=== PATIENT | male | born 1985 | race Caucasian/White ===

== ENCOUNTER 2016-08-16 01:30 | Inpatient (IN) | payer OTHER ==
[~2016-08-16] VITALS: Ht 172.7 cm; Wt 98.5 kg
[~2016-08-16 01:30] MED LIST: INSLAN SQ; INSU100V SQ; LISI-661 PO; PANT40TA25 PO
[2016-08-16 01:52] LABS: GLUCOSE,POINT OF CARE 206 MG/DL (70-110)
[2016-08-16 03:18] LABS: BASOPHILS % (AUTO) 0.5 % (0.0-2.0); EOSINOPHILS % (AUTO) 2.9 % (1.0-6.0); HEMATOCRIT 31.7 % (41-53); HEMOGLOBIN 9.6 g/dL (13.5-17.5); LYMPHOCYTES # (AUTO) 1.7 K/uL (1.0-4.8); LYMPHOCYTES % (AUTO) 16.8 % (22.0-44.0); MEAN CORPUSCULAR HGB CONC 30.4 G/dL (31.0-37.0); MEAN CORPUSCULAR VOLUME 82 fL (80-100); MONOCYTES # (AUTO) 0.9 K/uL (0.1-1.0); NEUTROPHILS # (AUTO) 7.1 K/uL (1.8-7.7); NEUTROPHILS % (AUTO) 70.8 % (40.0-70.0); PLATELET COUNT (AUTO) 429 K/uL (150-450); RED BLOOD CELL COUNT(AUTO) 3.85 MIL/uL (4.50-5.90); RED CELL DISTRIBUTION WIDTH 17.3 % (11.5-14.5)
[2016-08-16 03:27] LABS: CALCIUM, TOTAL 7.7 mg/dL (8.8-10.5); CREATININE 3.66 mg/dL (0.60-1.30); POTASSIUM 4.6 mmol/L (3.5-5.1)
[2016-08-16 03:33] LABS: ALBUMIN 1.6 g/dL (3.4-5.0); BILIRUBIN,TOTAL 0.1 mg/dL (0.1-1.0); TOTAL PROTEIN, SERUM 6.1 g/dL (6.4-8.2)
[2016-08-16 03:38] LABS: RBC MORPHOLOGY COMMENT ABNORMAL RBC MORPH
[2016-08-16] MEDS ORDERED: HYDROmorphone 2 MG/ML SYRINGE IVP ONE ×4 (04:30→13:45)
[2016-08-16] MEDS ORDERED: ONDANSETRON HCL 4 MG/2 ML VIAL IVP ONE (04:30)
[2016-08-16] MEDS ORDERED: BARIUM SULFATE 0.1% SUSPENSION 450 ML BOTTLE PO ONE (05:45)
[2016-08-16] MEDS ORDERED: FUROSEMIDE 40 MG/4 ML VIAL IVP ONE (06:00)
[2016-08-16 10:07] LABS: GLUCOSE,POINT OF CARE 178 MG/DL (70-110)
[2016-08-16 16:41] VITALS: BP 188/104
[2016-08-16] MEDS: HYDROmorphone 2 MG/ML SYRINGE IVP PRN ×2 (17:29→20:07)
[2016-08-16 17:34] VITALS: BP 150/90
[2016-08-16 19:17] VITALS: BP 155/95
[2016-08-16 23:40] VITALS: BP 160/102
[2016-08-17] MEDS: HYDROmorphone 2 MG/ML SYRINGE IVP PRN ×6 (00:06→20:02)
[2016-08-17 04:35] VITALS: BP 128/80
[2016-08-17] MEDS ORDERED: DEXTROSE 50%-WATER 25 GM/50 ML SYRINGE IVP PRN (05:30)
[2016-08-17] MEDS ORDERED: ONDANSETRON HCL 4 MG/2 ML VIAL IVP PRN (05:45)
[2016-08-17] MEDS ORDERED: 0.9% SODIUM CHLORIDE 10 ML SYRINGE IVP PRN (05:45)
[2016-08-17 06:52] LABS: GLUCOSE COMMENT 1 Received Meds; GLUCOSE,POINT OF CARE 171 MG/DL (70-110)
[2016-08-17 07:18] VITALS: BP 155/97
[2016-08-17] MEDS: PANTOPRAZOLE SODIUM 40 MG DR TABLET PO SCH (08:11)
[2016-08-17] MEDS: DOCUSATE SODIUM 100 MG CAPSULE PO SCH ×2 (08:11→20:03)
[2016-08-17] MEDS ORDERED: PANTOPRAZOLE SODIUM 40 MG/VIAL IVP SCH (09:00)
[2016-08-17] MEDS ORDERED: LISINOPRIL 10 MG TABLET PO SCH (09:00)
[2016-08-17 09:17] LABS: CALCIUM, TOTAL 7.8 mg/dL (8.8-10.5); CREATININE 3.81 mg/dL (0.60-1.30); POTASSIUM 4.6 mmol/L (3.5-5.1)
[2016-08-17 09:21] LABS: MAGNESIUM 1.5 mg/dL (1.80-2.40); PHOSPHORUS 5.1 mg/dL (2.5-4.9)
[2016-08-17] MEDS: FUROSEMIDE 20 MG/2 ML VIAL IVP SCH ×2 (10:05→20:02)
[2016-08-17 10:59] LABS: GLUCOSE,POINT OF CARE 173 MG/DL (70-110)
[2016-08-17 10:59] LABS: GLUCOSE,POINT OF CARE 155 MG/DL (70-110)
[2016-08-17] MEDS: INSULIN ASPART 100 UNITS/ML SQ PRN ×3 (12:12→20:04)
[2016-08-17 13:17] LABS: GLUCOSE COMMENT 1 Received Meds; GLUCOSE,POINT OF CARE 207 MG/DL (70-110)
[2016-08-17] MEDS ORDERED: MAGNESIUM SULFATE 1 GM in DEXTROSE 5%-WATER 50 ML IV ONE (15:15)
[2016-08-17 15:37] VITALS: BP 161/101
[2016-08-17 18:03] LABS: GLUCOSE COMMENT 1 Received Meds; GLUCOSE,POINT OF CARE 264 MG/DL (70-110)
[2016-08-17] MEDS: INSULIN DETEMIR 100 UNITS/ML SQ SCH (20:03)
[2016-08-17 20:17] VITALS: BP 181/101
[2016-08-17] MEDS: HydrALAZINE HCL 10 MG TABLET PO PRN (21:13)
[2016-08-17 23:10] VITALS: BP 137/94
[2016-08-18] VITALS (7 sets, daily range): BP systolic 133–181; BP diastolic 85–102
[2016-08-18] MEDS: HYDROmorphone 2 MG/ML SYRINGE IVP PRN ×6 (00:03→20:40)
[2016-08-18] MEDS: HydrALAZINE HCL 10 MG TABLET PO PRN ×2 (04:09→23:40)
[2016-08-18 04:17] LABS: GLUCOSE COMMENT 1 Received Meds; GLUCOSE,POINT OF CARE 296 MG/DL (70-110)
[2016-08-18 06:44] LABS: BASOPHILS % (AUTO) 0.5 % (0.0-2.0); LYMPHOCYTES # (AUTO) 1.7 K/uL (1.0-4.8); LYMPHOCYTES % (AUTO) 25.3 % (22.0-44.0); MEAN CORPUSCULAR HGB CONC 30.2 G/dL (31.0-37.0); MEAN CORPUSCULAR VOLUME 83 fL (80-100); MONOCYTES % (AUTO) 14.8 % (2.0-9.0); NEUTROPHILS # (AUTO) 3.5 K/uL (1.8-7.7); NEUTROPHILS % (AUTO) 51.4 % (40.0-70.0); PLATELET COUNT (AUTO) 452 K/uL (150-450); RED BLOOD CELL COUNT(AUTO) 3.99 MIL/uL (4.50-5.90); RED CELL DISTRIBUTION WIDTH 16.7 % (11.5-14.5); WHITE BLOOD COUNT (AUTO) 6.7 K/uL (4.5-11.0)
[2016-08-18 07:10] LABS: CALCIUM, TOTAL 7.7 mg/dL (8.8-10.5); CREATININE 3.82 mg/dL (0.60-1.30); MAGNESIUM 1.6 mg/dL (1.80-2.40); POTASSIUM 4.4 mmol/L (3.5-5.1)
[2016-08-18] MEDS: DOCUSATE SODIUM 100 MG CAPSULE PO SCH ×2 (08:18→20:40)
[2016-08-18] MEDS: FUROSEMIDE 20 MG/2 ML VIAL IVP SCH ×2 (08:19→20:40)
[2016-08-18] MEDS: PANTOPRAZOLE SODIUM 40 MG DR TABLET PO SCH (08:21)
[2016-08-18 11:23] LABS: GLUCOSE,POINT OF CARE 118 MG/DL (70-110)
[2016-08-18 11:23] LABS: GLUCOSE,POINT OF CARE 103 MG/DL (70-110)
[2016-08-18] MEDS: INSULIN ASPART 100 UNITS/ML SQ PRN (18:02)
[2016-08-18] MEDS: MAGNESIUM OXIDE 400 MG TABLET PO SCH (18:07)
[2016-08-18 18:12] LABS: GLUCOSE COMMENT 1 Received Meds; GLUCOSE,POINT OF CARE 177 MG/DL (70-110)
[2016-08-18] MEDS: INSULIN DETEMIR 100 UNITS/ML SQ SCH (21:00)
[2016-08-19] MEDS: HYDROmorphone 2 MG/ML SYRINGE IVP PRN ×4 (00:46→12:25)
[2016-08-19 01:24] VITALS: BP 147/83
[2016-08-19 04:21] VITALS: BP 184/112
[2016-08-19] MEDS: HydrALAZINE HCL 10 MG TABLET PO PRN ×2 (04:40→12:35)
[2016-08-19 05:02] LABS: GLUCOSE COMMENT 1 Received Meds; GLUCOSE,POINT OF CARE 137 MG/DL (70-110)
[2016-08-19] MEDS: INSULIN ASPART 100 UNITS/ML SQ PRN ×2 (05:19→12:05)
[2016-08-19 06:17] VITALS: BP 159/99
[2016-08-19 06:56] LABS: CALCIUM, TOTAL 7.7 mg/dL (8.8-10.5); CREATININE 3.81 mg/dL (0.60-1.30); MAGNESIUM 1.6 mg/dL (1.80-2.40); POTASSIUM 4.8 mmol/L (3.5-5.1)
[2016-08-19 07:21] VITALS: BP 146/94
[2016-08-19 07:42] LABS: GLUCOSE COMMENT 1 Received Meds; GLUCOSE,POINT OF CARE 229 MG/DL (70-110)
[2016-08-19] MEDS: DOCUSATE SODIUM 100 MG CAPSULE PO SCH (08:13)
[2016-08-19] MEDS: FUROSEMIDE 20 MG/2 ML VIAL IVP SCH (08:13)
[2016-08-19] MEDS: MAGNESIUM OXIDE 400 MG TABLET PO SCH (08:13)
[2016-08-19] MEDS: PANTOPRAZOLE SODIUM 40 MG DR TABLET PO SCH (08:13)
[2016-08-19 13:32] LABS: GLUCOSE,POINT OF CARE 236 MG/DL (70-110)
[2016-08-20 16:03] LABS: ALBUMIN URINE (ELP24) 31.9 %; ALPHA-1 URINE (ELP24) 9.9 %; ALPHA-2 URINE(ELP24) 11.9 %; BETA URINE(ELP24) 20.7 %; GAMMA URINE(ELP24) 25.6 %; TOTAL PROTEIN URINE 602.1 mg/dL (Not Estab.)
[2016-08-20] MEDS ORDERED: HYDR-309 PO (20:58)
[2016-08-20] MEDS ORDERED: FURO20 PO (20:58)
[2016-08-20] MEDS ORDERED: MAGOX PO (20:58)
== END 2016-08-19 13:07 | DRG 48 ==
LOC: EMS 01:31 → 6N 15:13
PROVIDERS: ADMIT Internal Medicine; ATTEND Internal Medicine
DX: E11.43 Type 2 diabetes mellitus with diabetic autonomic (poly)neuropathy (principal); E43 Unspecified severe protein-calorie malnutrition; J90 Pleural effusion, not elsewhere classified; N17.9 Acute kidney failure, unspecified; K56.7 Ileus, unspecified; E11.21 Type 2 diabetes mellitus with diabetic nephropathy; E83.51 Hypocalcemia; E11.51 Type 2 diabetes mellitus with diabetic peripheral angiopathy without gangrene; N18.4 Chronic kidney disease, stage 4 (severe); I16.0 Hypertensive urgency; K31.84 Gastroparesis; D63.8 Anemia in other chronic diseases classified elsewhere; E11.22 Type 2 diabetes mellitus with diabetic chronic kidney disease; E11.319 Type 2 diabetes mellitus with unspecified diabetic retinopathy without macular edema; E11.65 Type 2 diabetes mellitus with hyperglycemia; F12.90 Cannabis use, unspecified, uncomplicated; F17.210 Nicotine dependence, cigarettes, uncomplicated; F32.9 Major depressive disorder, single episode, unspecified; F43.10 Post-traumatic stress disorder, unspecified; H54.8 Legal blindness, as defined in USA; I12.9 Hypertensive chronic kidney disease with stage 1 through stage 4 chronic kidney disease, or unspecified chronic kidney disease; Z79.4 Long term (current) use of insulin; Z89.512 Acquired absence of left leg below knee; Z79.899 Other long term (current) drug therapy; Z99.2 Dependence on renal dialysis; Z88.8 Allergy status to other drugs, medicaments and biological substances; Z88.0 Allergy status to penicillin; Z88.5 Allergy status to narcotic agent; Z68.33 Body mass index [BMI] 33.0-33.9, adult; Z83.3 Family history of diabetes mellitus
CPT/HCPCS: 74176; 76700; 81050; 82306; 82570; 82575; 82962; 83735; 83970; 84100; 84156; 84166; 84300; 84540; 87081; 93005; 96374; 96375; 96376; 99285; J1170; J1940; J2405; J3475; J7060

== ENCOUNTER 2016-08-20 20:44 | Emergency (ER) | payer OTHER ==
[~2016-08-20] VITALS: Ht 172.7 cm; Wt 91.7 kg
[2016-08-20 20:54] VITALS: BP 187/109
[2016-08-20 20:57] LABS: GLUCOSE,POINT OF CARE 350 MG/DL (70-110)
[2016-08-20] MEDS ORDERED: MAGOX PO (20:58)
[2016-08-20] MEDS ORDERED: HYDR-309 PO (20:58)
[2016-08-20] MEDS ORDERED: FURO20 PO (20:58)
[2016-08-20] MEDS ORDERED: METOCLOPRAMIDE HCL 5 MG/ML 2 ML VIAL IM ONE (21:15)
== END 2016-08-20 22:02 | disposition left against medical advice (07) ==
LOC: EMS 20:47
DX: E11.43 Type 2 diabetes mellitus with diabetic autonomic (poly)neuropathy (principal); K31.84 Gastroparesis; Z79.4 Long term (current) use of insulin; Z88.0 Allergy status to penicillin; Z88.5 Allergy status to narcotic agent
CPT/HCPCS: 82962; 99283

== ENCOUNTER 2017-02-23 15:00 | Inpatient (IN) | payer OTHER ==
[~2017-02-23] VITALS: Ht 172.7 cm; Wt 112.7 kg
[~2017-02-23 15:00] MED LIST changes: +FURO20 PO; +HYDR-309 PO; +MAGOX PO
[2017-02-23] MEDS ORDERED: FUROSEMIDE 40 MG/4 ML VIAL IVP ONE (16:00)
[2017-02-23] MEDS ORDERED: ONDANSETRON HCL 4 MG/2 ML VIAL IVP ONE (16:00)
[2017-02-23] MEDS ORDERED: HYDROmorphone 2 MG/ML SYRINGE IVP ONE ×3 (16:00→18:45)
[2017-02-23 16:17] LABS: BASOPHILS % (AUTO) 0.2 % (0.0-2.0); EOSINOPHILS % (AUTO) 2.8 % (1.0-6.0); HEMATOCRIT 30.9 % (41-53); HEMOGLOBIN 10.3 g/dL (13.5-17.5); LYMPHOCYTES # (AUTO) 1.3 K/uL (1.0-4.8); LYMPHOCYTES % (AUTO) 15.4 % (22.0-44.0); MEAN CORPUSCULAR HEMOGLOBIN 27.5 pg (26.0-34.0); MEAN CORPUSCULAR HGB CONC 33.2 G/dL (31.0-37.0); MEAN CORPUSCULAR VOLUME 83 fL (80-100); MONOCYTES # (AUTO) 0.8 K/uL (0.1-1.0); MONOCYTES % (AUTO) 9.7 % (2.0-9.0); NEUTROPHILS % (AUTO) 71.9 % (40.0-70.0); PLATELET COUNT (AUTO) 390 K/uL (150-450); RED BLOOD CELL COUNT(AUTO) 3.73 MIL/uL (4.50-5.90); RED CELL DISTRIBUTION WIDTH 16.8 % (11.5-14.5); WHITE BLOOD COUNT (AUTO) 8.4 K/uL (4.5-11.0)
[2017-02-23 16:31] LABS: PROTHROMBIN TIME 10.7 SEC (9.4-11.6)
[2017-02-23 16:57] LABS: ALBUMIN 1.7 g/dL (3.4-5.0); BILIRUBIN,TOTAL 0.2 mg/dL (0.1-1.0); CALCIUM, TOTAL 7.3 mg/dL (8.8-10.5); CREATINE KINASE MB 9.7 ng/mL (0-5); CREATININE 10.73 mg/dL (0.60-1.30); TOTAL PROTEIN, SERUM 6.5 g/dL (6.4-8.2)
[2017-02-23 17:04] LABS: POTASSIUM 6.9 mmol/L (3.5-5.1)
[2017-02-23] MEDS ORDERED: ALBUTEROL SULFATE 2.5 MG/0.5 ML NEB SOLUTION NEB ONE (17:20)
[2017-02-23] MEDS ORDERED: CALCIUM GLUCONATE 100 MG/ML 10 ML IVP ONE (17:30)
[2017-02-23] MEDS ORDERED: DEXTROSE 50%-WATER 25 GM/50 ML SYRINGE IVP ONE (17:30)
[2017-02-23] MEDS ORDERED: INSULIN REGULAR, HUMAN 100 UNITS/ML SQ ONE (17:30)
[2017-02-23 18:22] LABS: GLUCOSE COMMENT 1 Doctor Notified; GLUCOSE,POINT OF CARE 181 MG/DL (70-110)
[2017-02-23] MEDS: VITAMIN B COMP/VIT C/FOLIC ACID CAPSULE PO SCH (18:37)
[2017-02-23] MEDS ORDERED: ONDANSETRON HCL 4 MG/2 ML VIAL IVP PRN ×2 (18:45→19:30)
[2017-02-23] MEDS ORDERED: ACETAMINOPHEN 325 MG TABLET PO PRN (18:45)
[2017-02-23] MEDS ORDERED: 0.9% SODIUM CHLORIDE 10 ML SYRINGE IVP PRN (18:45)
[2017-02-23] MEDS ORDERED: 0.9% SODIUM CHLORIDE 15 ML NEB SOLUTION NEB ONE (19:08)
[2017-02-23] MEDS ORDERED: ZOLPIDEM TARTRATE 5 MG TABLET PO PRN (19:30)
[2017-02-23] MEDS ORDERED: BISACODYL 10 MG RECTAL RECTAL SUPPOSITORY PR PRN (19:30)
[2017-02-23] MEDS ORDERED: ALBUTEROL SULFATE 2.5 MG/0.5 ML NEB SOLUTION NEB PRN (19:30)
[2017-02-23] MEDS ORDERED: IPRATROPIUM BROMIDE 0.5 MG/2.5 ML NEB SOLUTION NEB PRN (19:30)
[2017-02-23] MEDS ORDERED: MAGNESIUM HYDROXIDE SUSPENSION 30 ML UDCUP PO PRN (19:30)
[2017-02-23] MEDS ORDERED: DEXTROSE 50%-WATER 25 GM/50 ML SYRINGE IVP PRN (19:30)
[2017-02-23 21:00] VITALS: BP 175/96
[2017-02-23] MEDS: HEPARIN SODIUM,PORCINE 5,000 UNITS/ML VIAL SQ SCH (21:00)
[2017-02-23] MEDS: INSULIN DETEMIR 100 UNITS/ML SQ SCH (21:00)
[2017-02-23] MEDS ORDERED: SODIUM CHLORIDE 0.9% 2,000 ML IV ONE (21:02)
[2017-02-23] MEDS: HYDROmorphone 2 MG/ML SYRINGE IVP PRN (21:26)
[2017-02-23 22:27] LABS: GLUCOSE,POINT OF CARE 117 MG/DL (70-110)
[2017-02-23] MEDS ORDERED: ALBUMIN HUMAN 25%-12.5GM/50ML IV BOTTLE IV PRN (22:30)
[2017-02-23] MEDS ORDERED: LIDOCAINE HCL/PF 1% 2 ML VIAL ID PRN (22:30)
[2017-02-23] MEDS ORDERED: MANNITOL 25%-12.5 GM/50 ML VIAL IVP PRN (22:30)
[2017-02-24 00:30] VITALS: BP 153/86
[2017-02-24] MEDS: HYDROmorphone 2 MG/ML SYRINGE IVP PRN ×6 (01:28→23:33)
[2017-02-24 03:52] VITALS: BP 152/85
[2017-02-24 06:05] LABS: BASOPHILS % (AUTO) 0.2 % (0.0-2.0); EOSINOPHILS % (AUTO) 4.8 % (1.0-6.0); HEMATOCRIT 29.2 % (41-53); HEMOGLOBIN 9.6 g/dL (13.5-17.5); LYMPHOCYTES # (AUTO) 1.7 K/uL (1.0-4.8); MEAN CORPUSCULAR HEMOGLOBIN 27.8 pg (26.0-34.0); MEAN CORPUSCULAR HGB CONC 32.9 G/dL (31.0-37.0); MEAN CORPUSCULAR VOLUME 84 fL (80-100); MONOCYTES # (AUTO) 1.1 K/uL (0.1-1.0); MONOCYTES % (AUTO) 19.8 % (2.0-9.0); NEUTROPHILS # (AUTO) 2.6 K/uL (1.8-7.7); NEUTROPHILS % (AUTO) 46.2 % (40.0-70.0); PLATELET COUNT (AUTO) 376 K/uL (150-450); RED BLOOD CELL COUNT(AUTO) 3.46 MIL/uL (4.50-5.90); RED CELL DISTRIBUTION WIDTH 17.1 % (11.5-14.5); WHITE BLOOD COUNT (AUTO) 5.7 K/uL (4.5-11.0)
[2017-02-24 06:44] LABS: ALBUMIN 1.5 g/dL (3.4-5.0); BILIRUBIN,TOTAL 0.2 mg/dL (0.1-1.0); CALCIUM, TOTAL 6.9 mg/dL (8.8-10.5); CREATININE 8.08 mg/dL (0.60-1.30); MAGNESIUM 2.5 mg/dL (1.80-2.40); PHOSPHORUS 7.6 mg/dL (2.5-4.9); POTASSIUM 5.5 mmol/L (3.5-5.1); TOTAL PROTEIN, SERUM 5.9 g/dL (6.4-8.2)
[2017-02-24] MEDS: HEPARIN SODIUM,PORCINE 5,000 UNITS/ML VIAL SQ SCH ×2 (09:00→21:00)
[2017-02-24] MEDS ORDERED: SODIUM CHLORIDE 0.9% 1,000 ML IV ONE (10:50)
[2017-02-24 11:37] VITALS: BP 175/99
[2017-02-24 12:53] LABS: GLUCOSE,POINT OF CARE 119 MG/DL (70-110)
[2017-02-24] MEDS: VITAMIN B COMP/VIT C/FOLIC ACID CAPSULE PO SCH (14:48)
[2017-02-24] MEDS: ASPIRIN 81 MG CHEWABLE TABLET PO SCH (14:49)
[2017-02-24] MEDS: PANTOPRAZOLE SODIUM 40 MG DR TABLET PO SCH (14:49)
[2017-02-24] MEDS: CHOLECALCIFEROL (VIT D3) 1,000 UNITS TABLET PO SCH (14:49)
[2017-02-24 15:32] VITALS: BP 169/92
[2017-02-24 19:29] VITALS: BP 188/100
[2017-02-24] MEDS: INSULIN DETEMIR 100 UNITS/ML SQ SCH (21:00)
[2017-02-24 21:52] LABS: GLUCOSE,POINT OF CARE 120 MG/DL (70-110)
[2017-02-24 23:30] VITALS: BP_SYST 15; BP_SYST 155; BP_DIAS 95
[2017-02-25] MEDS: HYDROmorphone 2 MG/ML SYRINGE IVP PRN ×2 (03:58→08:32)
[2017-02-25 03:59] VITALS: BP 175/93
[2017-02-25 07:37] LABS: GLUCOSE,POINT OF CARE 136 MG/DL (70-110)
[2017-02-25 07:38] LABS: GLUCOSE,POINT OF CARE 280 MG/DL (70-110)
[2017-02-25 08:28] VITALS: BP 157/93
[2017-02-25] MEDS: PANTOPRAZOLE SODIUM 40 MG DR TABLET PO SCH (08:28)
[2017-02-25] MEDS: ASPIRIN 81 MG CHEWABLE TABLET PO SCH (08:28)
[2017-02-25] MEDS: VITAMIN B COMP/VIT C/FOLIC ACID CAPSULE PO SCH (08:28)
[2017-02-25] MEDS: CHOLECALCIFEROL (VIT D3) 1,000 UNITS TABLET PO SCH (08:28)
[2017-02-25] MEDS: HEPARIN SODIUM,PORCINE 5,000 UNITS/ML VIAL SQ SCH ×2 (08:32→21:00)
[2017-02-25] MEDS ORDERED: ASPI81TA39 PO (10:25)
[2017-02-25] MEDS ORDERED: VITAD1000 PO (10:25)
[2017-02-25] MEDS ORDERED: EPOE10003 SQ (10:26)
[2017-02-25] MEDS ORDERED: HEPA500018 SQ (10:27)
[2017-02-25] MEDS ORDERED: FOLI1CAP2 PO (10:27)
[2017-02-25] MEDS ORDERED: AUD NEB (10:28)
[2017-02-25] MEDS ORDERED: BISA10S PR (10:28)
[2017-02-25] MEDS ORDERED: IPRNEB IH (10:29)
[2017-02-25] MEDS ORDERED: INSNOV SQ (10:32)
[2017-02-25 11:00] VITALS: BP 176/62
[2017-02-25 11:43] LABS: GLUCOSE,POINT OF CARE 173 MG/DL (70-110)
[2017-02-25 11:43] LABS: GLUCOSE,POINT OF CARE 237 MG/DL (70-110)
[2017-02-25] MEDS: INSULIN ASPART 100 UNITS/ML SQ PRN (11:54)
[2017-02-25] MEDS ORDERED: AmLODIPine BESYLATE 5 MG TABLET PO SCH (14:45)
[2017-02-25] MEDS ORDERED: AMLO-511 PO (14:49)
[2017-02-25] MEDS ORDERED: CloNIDine HCL 0.1 MG TABLET PO ONE (17:15)
[2017-02-25] MEDS ORDERED: TraMADol HCL 50 MG TABLET PO ONE (17:15)
[2017-02-25] MEDS ORDERED: AmLODIPine BESYLATE 10 MG TABLET PO ONE (18:45)
[2017-02-25] MEDS ORDERED: CloNIDine HCL 0.1 MG TABLET PO PRN (18:45)
[2017-02-25 19:23] VITALS: BP 165/98
[2017-02-25] MEDS: INSULIN DETEMIR 100 UNITS/ML SQ SCH (21:00)
[2017-02-25] MEDS ORDERED: LIDOCAINE HCL/PF 1% 2 ML VIAL INJ ONE (22:10)
[2017-02-25 23:58] VITALS: BP 167/73
[2017-02-26] MEDS: INSULIN ASPART 100 UNITS/ML SQ PRN (05:56)
[2017-02-26 06:05] VITALS: BP 133/70
[2017-02-26 07:26] LABS: GLUCOSE,POINT OF CARE 234 MG/DL (70-110)
[2017-02-26 08:04] VITALS: BP 113/65
[2017-02-26] MEDS: CHOLECALCIFEROL (VIT D3) 1,000 UNITS TABLET PO SCH (09:00)
[2017-02-26] MEDS: PANTOPRAZOLE SODIUM 40 MG DR TABLET PO SCH (09:00)
[2017-02-26] MEDS: HEPARIN SODIUM,PORCINE 5,000 UNITS/ML VIAL SQ SCH (09:00)
[2017-02-26] MEDS ORDERED: EPOETIN ALFA 10,000 UNITS/ML VIAL SQ SCH (09:00)
[2017-02-26] MEDS: VITAMIN B COMP/VIT C/FOLIC ACID CAPSULE PO SCH (09:00)
[2017-02-26] MEDS ORDERED: AmLODIPine BESYLATE 10 MG TABLET PO SCH (09:00)
[2017-02-26] MEDS: ASPIRIN 81 MG CHEWABLE TABLET PO SCH (09:00)
[2017-02-26] MEDS ORDERED: AMLO-512 PO (10:06)
[2017-02-26 11:21] VITALS: BP 138/87
[2017-02-26 15:29] VITALS: BP 156/91
[2017-02-26 19:47] LABS: GLUCOSE,POINT OF CARE 139 MG/DL (70-110)
== END 2017-02-26 19:58 | DRG 425 ==
LOC: EMS 15:02 → 5N 18:55
PROVIDERS: ADMIT Internal Medicine; ATTEND Internal Medicine
PROC: 5A1D70Z Performance of Urinary Filtration, Intermittent, Less than 6 Hours Per Day (ICD-10-PCS; principal; 2017-02-23)
PROC: 5A1D70Z Performance of Urinary Filtration, Intermittent, Less than 6 Hours Per Day (ICD-10-PCS; 2017-02-24)
PROC: 5A1D70Z Performance of Urinary Filtration, Intermittent, Less than 6 Hours Per Day (ICD-10-PCS; 2017-02-26)
DX: E87.5 Hyperkalemia (principal); I13.2 Hypertensive heart and chronic kidney disease with heart failure and with stage 5 chronic kidney disease, or end stage renal disease; E43 Unspecified severe protein-calorie malnutrition; N18.6 End stage renal disease; E11.21 Type 2 diabetes mellitus with diabetic nephropathy; E11.22 Type 2 diabetes mellitus with diabetic chronic kidney disease; F11.20 Opioid dependence, uncomplicated; E11.65 Type 2 diabetes mellitus with hyperglycemia; E87.1 Hypo-osmolality and hyponatremia; E55.9 Vitamin D deficiency, unspecified; K21.9 Gastro-esophageal reflux disease without esophagitis; B18.2 Chronic viral hepatitis C; D63.1 Anemia in chronic kidney disease; E11.319 Type 2 diabetes mellitus with unspecified diabetic retinopathy without macular edema; E11.43 Type 2 diabetes mellitus with diabetic autonomic (poly)neuropathy; E11.51 Type 2 diabetes mellitus with diabetic peripheral angiopathy without gangrene; E66.9 Obesity, unspecified; F12.10 Cannabis abuse, uncomplicated; F17.210 Nicotine dependence, cigarettes, uncomplicated; F32.9 Major depressive disorder, single episode, unspecified; F43.10 Post-traumatic stress disorder, unspecified; H54.8 Legal blindness, as defined in USA; I50.9 Heart failure, unspecified; K31.84 Gastroparesis; Z76.5 Malingerer [conscious simulation]; Z91.19 Patient's noncompliance with other medical treatment and regimen; Z79.4 Long term (current) use of insulin; Z79.899 Other long term (current) drug therapy; Z89.512 Acquired absence of left leg below knee; Z99.2 Dependence on renal dialysis; Z88.0 Allergy status to penicillin; Z88.5 Allergy status to narcotic agent; Z88.8 Allergy status to other drugs, medicaments and biological substances; Z71.51 Drug abuse counseling and surveillance of drug abuser
CPT/HCPCS: 82962; 83036; 83735; 84100; 84132; 87081; 87340; 90935; 93005; 96372; 96374; 96375; 96376; 99291; J0610; J0885; J1170; J1644; J1815; J1940; J2405; J3490; J7030

== ENCOUNTER 2017-03-13 10:46 | Emergency (ER) | payer OTHER ==
[~2017-03-13] VITALS: Ht 172.7 cm; Wt 102.3 kg
[~2017-03-13 10:46] MED LIST changes: +AMLO-512 PO; +ASPI81TA39 PO; +AUD NEB; +BISA10S PR; +EPOE10003 SQ; +FOLI1CAP2 PO; -FURO20 PO; +HEPA500018 SQ; -HYDR-309 PO; +INSNOV SQ; -INSU100V SQ; +IPRNEB IH; -LISI-661 PO; -MAGOX PO; +VITAD1000 PO
[2017-03-13] MEDS ORDERED: ONDANSETRON HCL 4 MG/2 ML VIAL IVP ONE (11:45)
[2017-03-13 12:57] LABS: BASOPHILS # (AUTO) 0.09 K/uL (0.00-0.20); BASOPHILS % (AUTO) 0.9 % (0.0-2.0); EOSINOPHILS # (AUTO) 0.29 K/uL (0.00-0.70); EOSINOPHILS % (AUTO) 2.77 % (1.0-6.0); HEMATOCRIT 28.7 % (41-53); HEMOGLOBIN 9.1 g/dL (13.5-17.5); LYMPHOCYTES # (AUTO) 1.4 K/uL (1.0-4.8); LYMPHOCYTES % (AUTO) 12.8 % (22.0-44.0); MEAN CORPUSCULAR HEMOGLOBIN 27.2 pg (26.0-34.0); MEAN CORPUSCULAR HGB CONC 31.8 G/dL (31.0-37.0); MEAN CORPUSCULAR VOLUME 86 fL (80-100); MONOCYTES # (AUTO) 1.4 K/uL (0.1-1.0); MONOCYTES % (AUTO) 12.7 % (2.0-9.0); NEUTROPHILS # (AUTO) 7.6 K/uL (1.8-7.7); PLATELET COUNT (AUTO) 386 K/uL (150-450); RED BLOOD CELL COUNT(AUTO) 3.36 MIL/uL (4.50-5.90); RED CELL DISTRIBUTION WIDTH 17.9 % (11.5-14.5); WHITE BLOOD COUNT (AUTO) 10.6 K/uL (4.5-11.0)
[2017-03-13 13:15] LABS: CALCIUM, TOTAL 7.5 mg/dL (8.8-10.5); CREATININE 4.58 mg/dL (0.60-1.30); POTASSIUM 5.2 mmol/L (3.5-5.1)
[2017-03-13 13:18] LABS: ALBUMIN 1.7 g/dL (3.4-5.0); BILIRUBIN,TOTAL 0.2 mg/dL (0.1-1.0)
[2017-03-13] MEDS ORDERED: BARIUM SULFATE 0.1% SUSPENSION 450 ML BOTTLE PO ONE (13:30)
[2017-03-13] MEDS ORDERED: MORPHINE SULFATE 2 MG/ML SYRINGE IVP ONE (13:30)
[2017-03-13] MEDS ORDERED: IOVERSOL 350 MG/ML 150 ML VIAL ONE (14:09)
[2017-03-13] MEDS ORDERED: SODIUM CHLORIDE 0.9% 100 ML ONE (14:10)
[2017-03-13 17:41] VITALS: BP 145/73
== END 2017-03-13 18:11 | disposition home or self-care (01) ==
LOC: EMS 10:48
DX: E11.43 Type 2 diabetes mellitus with diabetic autonomic (poly)neuropathy (principal); K31.84 Gastroparesis; G89.29 Other chronic pain; I10 Essential (primary) hypertension; F12.10 Cannabis abuse, uncomplicated; F17.210 Nicotine dependence, cigarettes, uncomplicated; Z79.4 Long term (current) use of insulin; Z88.0 Allergy status to penicillin; Z88.5 Allergy status to narcotic agent; Z88.8 Allergy status to other drugs, medicaments and biological substances
CPT/HCPCS: 74176; 80053; 83690; 85025; 93005; 96374; 96375; 99285; 99406; J2270; J2405; J7050; Q9967; Z7610

== ENCOUNTER 2018-07-31 10:46 | Emergency (ER) | payer OTHER ==
[~2018-07-31] VITALS: Ht 167.6 cm; Wt 72.7 kg
[~2018-07-31 10:46] MED LIST changes: -ASPI81TA39 PO; -AUD NEB; -BISA10S PR; -FOLI1CAP2 PO; -HEPA500018 SQ; -INSLAN SQ; -IPRNEB IH; -PANT40TA25 PO
[2018-07-31] MEDS ORDERED: ATOR10TA69 PO (11:09)
[2018-07-31] MEDS ORDERED: SEVEC800 PO (11:09)
[2018-07-31] MEDS ORDERED: ACET-2247 PO (11:09)
[2018-07-31] MEDS ORDERED: CALC25 PO (11:09)
[2018-07-31] MEDS ORDERED: PERCT PO (11:09)
[2018-07-31] MEDS ORDERED: CARV25 PO (11:09)
[2018-07-31] MEDS ORDERED: SERT50TA12 PO (11:09)
[2018-07-31] MEDS ORDERED: LORazepam 2 MG/ML VIAL IVP ONE ×2 (11:15→13:30)
[2018-07-31] MEDS ORDERED: HALOPERIDOL LACTATE 5 MG/ML VIAL IVP ONE ×2 (11:15→13:30)
[2018-07-31 11:36] LABS: BASOPHILS % (AUTO) 1.2 % (0.0-2.0); EOSINOPHILS % (AUTO) 2.8 % (1.0-6.0); HEMATOCRIT 27.5 % (41-53); HEMOGLOBIN 8.9 g/dL (13.5-17.5); LYMPHOCYTES # (AUTO) 0.9 K/uL (1.0-4.8); LYMPHOCYTES % (AUTO) 12.2 % (22.0-44.0); MEAN CORPUSCULAR HEMOGLOBIN 28.7 pg (26.0-34.0); MEAN CORPUSCULAR HGB CONC 32.3 G/dL (31.0-37.0); MEAN CORPUSCULAR VOLUME 89 fL (80-100); MONOCYTES # (AUTO) 0.8 K/uL (0.1-1.0); MONOCYTES % (AUTO) 11.2 % (2.0-9.0); NEUTROPHILS # (AUTO) 5.4 K/uL (1.8-7.7); NEUTROPHILS % (AUTO) 72.6 % (40.0-70.0); PLATELET COUNT (AUTO) 359 K/uL (150-450); RED BLOOD CELL COUNT(AUTO) 3.09 MIL/uL (4.50-5.90); RED CELL DISTRIBUTION WIDTH 15.7 % (11.5-14.5)
[2018-07-31 11:52] LABS: CALCIUM, TOTAL 7.9 mg/dL (8.8-10.5); CREATININE 15.2 mg/dL (0.60-1.30); POTASSIUM 5.7 mmol/L (3.5-5.1)
[2018-07-31 11:57] LABS: ALBUMIN 3.3 g/dL (3.4-5.0); BILIRUBIN,TOTAL 0.5 mg/dL (0.1-1.0); TOTAL PROTEIN, SERUM 8.7 g/dL (6.4-8.2)
[2018-07-31 12:00] VITALS: BP 170/107
[2018-07-31] MEDS ORDERED: LORazepam 2 MG/ML VIAL IM ONE (13:30)
[2018-07-31] MEDS ORDERED: HALOPERIDOL LACTATE 5 MG/ML VIAL IM ONE (13:30)
== END 2018-07-31 13:58 | disposition home or self-care (01) ==
LOC: EMS 10:48
DX: F12.988 Cannabis use, unspecified with other cannabis-induced disorder (principal); R11.10 Vomiting, unspecified; I12.0 Hypertensive chronic kidney disease with stage 5 chronic kidney disease or end stage renal disease; E11.22 Type 2 diabetes mellitus with diabetic chronic kidney disease; N18.6 End stage renal disease; D63.1 Anemia in chronic kidney disease; F32.9 Major depressive disorder, single episode, unspecified; F12.90 Cannabis use, unspecified, uncomplicated; F17.210 Nicotine dependence, cigarettes, uncomplicated; Z99.2 Dependence on renal dialysis; Z88.0 Allergy status to penicillin; Z88.8 Allergy status to other drugs, medicaments and biological substances; Z79.4 Long term (current) use of insulin; Z79.899 Other long term (current) drug therapy
CPT/HCPCS: 36415; 71045; 80053; 82962; 83690; 85025; 93005; 96372; 96374; 96375; 99285; J1630; J2060

== ENCOUNTER 2018-07-31 14:33 | Emergency (ER) | payer OTHER ==
[~2018-07-31] VITALS: Ht 167.6 cm; Wt 72.7 kg
[~2018-07-31 14:33] MED LIST changes: +ACET-2247 PO; +ATOR10TA69 PO; +CALC25 PO; +CARV25 PO; +PERCT PO; +SERT50TA12 PO; +SEVEC800 PO
[2018-07-31 14:47] VITALS: BP 161/95
== END 2018-07-31 18:26 | disposition home or self-care (01) ==
LOC: EMS 14:34
DX: R11.10 Vomiting, unspecified (principal); R10.9 Unspecified abdominal pain; I10 Essential (primary) hypertension; E11.9 Type 2 diabetes mellitus without complications; F32.9 Major depressive disorder, single episode, unspecified; F12.90 Cannabis use, unspecified, uncomplicated; F17.210 Nicotine dependence, cigarettes, uncomplicated; Z88.0 Allergy status to penicillin; Z88.8 Allergy status to other drugs, medicaments and biological substances; Z79.4 Long term (current) use of insulin; Z79.899 Other long term (current) drug therapy

== ENCOUNTER 2018-09-08 03:08 | Inpatient (IN) | payer OTHER ==
[~2018-09-08] VITALS: Ht 172.7 cm; Wt 79.3 kg
[~2018-09-08 03:08] MED LIST changes: -VITAD1000 PO
[2018-09-08] MEDS ORDERED: SODIUM CHLORIDE 0.9% 1,000 ML IV ONE (03:15)
[2018-09-08] MEDS ORDERED: ONDANSETRON HCL 4 MG/2 ML VIAL IVP ONE (03:15)
[2018-09-08] MEDS ORDERED: MORPHINE SULFATE 4 MG/ML SYRINGE IVP ONE (03:15)
[2018-09-08] MEDS ORDERED: METOCLOPRAMIDE HCL 5 MG/ML 2 ML VIAL IVP ONE (03:30)
[2018-09-08] MEDS ORDERED: HYDROmorphone 2 MG/ML SYRINGE IVP ONE ×3 (03:45→09:30)
[2018-09-08 03:50] LABS: BASOPHILS % (AUTO) 1.2 % (0.0-2.0); EOSINOPHILS % (AUTO) 3.8 % (1.0-6.0); HEMATOCRIT 24.3 % (41-53); HEMOGLOBIN 7.9 g/dL (13.5-17.5); LYMPHOCYTES # (AUTO) 1.2 K/uL (1.0-4.8); LYMPHOCYTES % (AUTO) 16.1 % (22.0-44.0); MEAN CORPUSCULAR HEMOGLOBIN 29.2 pg (26.0-34.0); MEAN CORPUSCULAR HGB CONC 32.7 G/dL (31.0-37.0); MEAN CORPUSCULAR VOLUME 89 fL (80-100); MONOCYTES # (AUTO) 0.8 K/uL (0.1-1.0); MONOCYTES % (AUTO) 11.3 % (2.0-9.0); NEUTROPHILS # (AUTO) 5.1 K/uL (1.8-7.7); NEUTROPHILS % (AUTO) 67.6 % (40.0-70.0); PLATELET COUNT (AUTO) 256 K/uL (150-450); RED BLOOD CELL COUNT(AUTO) 2.72 MIL/uL (4.50-5.90); RED CELL DISTRIBUTION WIDTH 16.2 % (11.5-14.5)
[2018-09-08 04:03] LABS: ALBUMIN 2.9 g/dL (3.4-5.0); BILIRUBIN,TOTAL 0.5 mg/dL (0.1-1.0); CALCIUM, TOTAL 8.4 mg/dL (8.8-10.5); CREATININE 8.81 mg/dL (0.60-1.30); TOTAL PROTEIN, SERUM 7.3 g/dL (6.4-8.2)
[2018-09-08 04:10] LABS: POTASSIUM 6.6 mmol/L (3.5-5.1)
[2018-09-08] MEDS ORDERED: ALBUTEROL SULFATE 5 MG/ML 20 ML NEB SOLN [BULK] NEB ONE ×2 (04:15→04:30)
[2018-09-08] MEDS ORDERED: 0.9% SODIUM CHLORIDE 5 ML NEB SOLUTION NEB ONE (04:25)
[2018-09-08] MEDS ORDERED: INSULIN REGULAR, HUMAN 100 UNITS/ML IVP ONE (04:30)
[2018-09-08] MEDS ORDERED: CALCIUM GLUCONATE 100 MG/ML 10 ML IVP ONE (04:30)
[2018-09-08] MEDS ORDERED: DEXTROSE 50%-WATER 25 GM/50 ML SYRINGE IVP ONE ×2 (04:30)
[2018-09-08] MEDS ORDERED: NITROGLYCERIN 2% (1 GM=INCH) PACKET TP ONE (04:30)
[2018-09-08 04:35] LABS: MAGNESIUM 2.5 mg/dL (1.80-2.40)
[2018-09-08 04:37] LABS: POTASSIUM 6.6 mmol/L (3.5-5.1)
[2018-09-08] MEDS ORDERED: CloNIDine HCL 0.2 MG TABLET PO ONE (05:30)
[2018-09-08 07:05] VITALS: BP 164/87
[2018-09-08] MEDS ORDERED: SODIUM CHLORIDE 0.9% 2,000 ML IV ONE (07:37)
[2018-09-08 07:52] VITALS: BP 157/89
[2018-09-08] MEDS ORDERED: ONDANSETRON HCL 4 MG/2 ML VIAL IVP PRN (08:45)
[2018-09-08] MEDS ORDERED: PANTOPRAZOLE SODIUM 40 MG/VIAL IVP SCH (09:00)
[2018-09-08] MEDS: EPOETIN ALFA 10,000 UNITS/ML VIAL SQ SCH (09:00)
[2018-09-08 11:49] VITALS: BP 186/95
[2018-09-08] MEDS: METOCLOPRAMIDE HCL 5 MG TABLET PO SCH ×3 (12:30→20:36)
[2018-09-08] MEDS: HYDROmorphone HCL 2 MG TABLET PO PRN (14:37)
[2018-09-08] MEDS: CloNIDine HCL 0.1 MG TABLET PO PRN ×2 (14:37→20:37)
[2018-09-08 16:55] VITALS: BP 188/112
[2018-09-08] MEDS: HYDROmorphone 2 MG/ML SYRINGE IVP PRN ×2 (18:37→22:40)
[2018-09-08 19:31] VITALS: BP 181/90
[2018-09-08 22:45] VITALS: BP 157/100
[2018-09-09] VITALS (7 sets, daily range): BP systolic 152–205; BP diastolic 76–119
[2018-09-09] MEDS: HYDROmorphone 2 MG/ML SYRINGE IVP PRN ×5 (03:22→20:07)
[2018-09-09] MEDS: METOCLOPRAMIDE HCL 5 MG TABLET PO SCH ×4 (05:44→20:07)
[2018-09-09] MEDS: CloNIDine HCL 0.1 MG TABLET PO PRN ×2 (05:50→15:52)
[2018-09-09] MEDS: FAMOTIDINE 10 MG/ML 2 ML VIAL IVP SCH (08:06)
[2018-09-09 11:13] LABS: BASOPHILS % (AUTO) 1.3 % (0.0-2.0); EOSINOPHILS % (AUTO) 3.5 % (1.0-6.0); HEMATOCRIT 22.1 % (41-53); HEMOGLOBIN 7.2 g/dL (13.5-17.5); LYMPHOCYTES # (AUTO) 1.2 K/uL (1.0-4.8); LYMPHOCYTES % (AUTO) 20.5 % (22.0-44.0); MEAN CORPUSCULAR HEMOGLOBIN 28.9 pg (26.0-34.0); MEAN CORPUSCULAR HGB CONC 32.5 G/dL (31.0-37.0); MEAN CORPUSCULAR VOLUME 89 fL (80-100); MONOCYTES # (AUTO) 0.9 K/uL (0.1-1.0); MONOCYTES % (AUTO) 14.6 % (2.0-9.0); NEUTROPHILS # (AUTO) 3.6 K/uL (1.8-7.7); NEUTROPHILS % (AUTO) 60.1 % (40.0-70.0); PLATELET COUNT (AUTO) 216 K/uL (150-450); RED BLOOD CELL COUNT(AUTO) 2.48 MIL/uL (4.50-5.90); RED CELL DISTRIBUTION WIDTH 16.3 % (11.5-14.5)
[2018-09-09 11:30] LABS: CALCIUM, TOTAL 7.9 mg/dL (8.8-10.5); CREATININE 7.8 mg/dL (0.60-1.30); MAGNESIUM 2.2 mg/dL (1.80-2.40); PHOSPHORUS 4.2 mg/dL (2.5-4.9); POTASSIUM 5.9 mmol/L (3.5-5.1)
[2018-09-09 13:14] LABS: % IRON SATURATION 33.3 % (30-44)
[2018-09-09] MEDS ORDERED: AmLODIPine BESYLATE 10 MG TABLET PO ONE (18:45)
[2018-09-09] MEDS ORDERED: CARVEDILOL 25 MG TABLET PO ONE (18:45)
[2018-09-09] MEDS: HYDROmorphone HCL 2 MG TABLET PO PRN (23:27)
[2018-09-10] MEDS: HYDROmorphone 2 MG/ML SYRINGE IVP PRN ×7 (01:04→20:58)
[2018-09-10] MEDS: METOCLOPRAMIDE HCL 5 MG TABLET PO SCH ×4 (05:52→20:58)
[2018-09-10 07:17] LABS: CALCIUM, TOTAL 8.1 mg/dL (8.8-10.5); PHOSPHORUS 3.8 mg/dL (2.5-4.9); POTASSIUM 5.3 mmol/L (3.5-5.1)
[2018-09-10 08:30] VITALS: BP 188/110
[2018-09-10] MEDS: CARVEDILOL 25 MG TABLET PO SCH ×2 (08:31→20:58)
[2018-09-10] MEDS: EPOETIN ALFA 10,000 UNITS/ML VIAL SQ SCH (08:32)
[2018-09-10] MEDS: FAMOTIDINE 10 MG/ML 2 ML VIAL IVP SCH (08:32)
[2018-09-10] MEDS: AmLODIPine BESYLATE 10 MG TABLET PO SCH ×2 (08:32→20:58)
[2018-09-10 08:46] LABS: BASOPHILS % (AUTO) 1.4 % (0.0-2.0); EOSINOPHILS % (AUTO) 4.7 % (1.0-6.0); HEMOGLOBIN 7.2 g/dL (13.5-17.5); LYMPHOCYTES % (AUTO) 18.5 % (22.0-44.0); MEAN CORPUSCULAR HGB CONC 32.8 G/dL (31.0-37.0); MEAN CORPUSCULAR VOLUME 89 fL (80-100); MONOCYTES # (AUTO) 0.8 K/uL (0.1-1.0); MONOCYTES % (AUTO) 15.3 % (2.0-9.0); NEUTROPHILS # (AUTO) 3.2 K/uL (1.8-7.7); NEUTROPHILS % (AUTO) 60.1 % (40.0-70.0); PLATELET COUNT (AUTO) 228 K/uL (150-450); RED BLOOD CELL COUNT(AUTO) 2.49 MIL/uL (4.50-5.90); RED CELL DISTRIBUTION WIDTH 16.6 % (11.5-14.5)
[2018-09-10 12:30] VITALS: BP 146/78
[2018-09-10] MEDS ORDERED: DEXTROSE 50%-WATER 25 GM/50 ML SYRINGE IVP PRN (12:30)
[2018-09-10] MEDS: INSULIN LISPRO 100 UNITS/ML SQ PRN ×2 (12:34→17:55)
[2018-09-10 15:00] VITALS: BP 158/84
[2018-09-10] MEDS: HYDROmorphone HCL 2 MG TABLET PO PRN ×2 (15:10→21:05)
[2018-09-10 17:49] LABS: GLUCOMETER DEV NAME(LOC) 5N.1; GLUCOSE,POINT OF CARE 145 MG/DL (70-110)
[2018-09-10] MEDS: CloNIDine HCL 0.1 MG TABLET PO PRN (21:04)
[2018-09-10 21:07] VITALS: BP 188/79
[2018-09-10 23:44] LABS: GLUCOMETER DEV NAME(LOC) 5N.1; GLUCOSE,POINT OF CARE 158 MG/DL (70-110)
[2018-09-10 23:44] LABS: GLUCOMETER DEV NAME(LOC) 5N.1; GLUCOSE,POINT OF CARE 164 MG/DL (70-110)
[2018-09-11] VITALS (7 sets, daily range): BP systolic 117–155; BP diastolic 57–96
[2018-09-11] MEDS: HYDROmorphone 2 MG/ML SYRINGE IVP PRN ×6 (01:05→20:59)
[2018-09-11] MEDS: FAMOTIDINE 10 MG/ML 2 ML VIAL IVP SCH (08:40)
[2018-09-11] MEDS: AmLODIPine BESYLATE 10 MG TABLET PO SCH ×2 (08:40→21:05)
[2018-09-11] MEDS: CARVEDILOL 25 MG TABLET PO SCH ×2 (08:41→21:05)
[2018-09-11] MEDS: METOCLOPRAMIDE HCL 5 MG TABLET PO SCH ×4 (08:41→21:05)
[2018-09-11] MEDS: INSULIN LISPRO 100 UNITS/ML SQ PRN (12:26)
[2018-09-12] MEDS ORDERED: HYDROmorphone 2 MG/ML SYRINGE IVP ONE (00:15)
[2018-09-12] MEDS: HYDROmorphone 2 MG/ML SYRINGE IVP PRN ×5 (04:03→20:02)
[2018-09-12] MEDS: METOCLOPRAMIDE HCL 5 MG TABLET PO SCH ×4 (04:03→19:47)
[2018-09-12 07:32] VITALS: BP 135/84
[2018-09-12] MEDS: FAMOTIDINE 10 MG/ML 2 ML VIAL IVP SCH (08:03)
[2018-09-12] MEDS: AmLODIPine BESYLATE 10 MG TABLET PO SCH ×2 (09:00→19:49)
[2018-09-12] MEDS: CARVEDILOL 25 MG TABLET PO SCH ×2 (09:00→19:49)
[2018-09-12 11:06] VITALS: BP 124/57
[2018-09-12 11:20] LABS: GLUCOMETER DEV NAME(LOC) 5N.1; GLUCOSE,POINT OF CARE 192 MG/DL (70-110)
[2018-09-12 11:20] LABS: GLUCOMETER DEV NAME(LOC) 5N.1; GLUCOSE,POINT OF CARE 157 MG/DL (70-110)
[2018-09-12 11:21] LABS: GLUCOMETER DEV NAME(LOC) 5N.1; GLUCOSE,POINT OF CARE 222 MG/DL (70-110)
[2018-09-12 11:21] LABS: GLUCOMETER DEV NAME(LOC) 5N.1; GLUCOSE,POINT OF CARE 106 MG/DL (70-110)
[2018-09-12] MEDS: HYDROmorphone HCL 2 MG TABLET PO PRN (19:48)
[2018-09-12 19:50] VITALS: BP 148/85
[2018-09-12] MEDS: INSULIN LISPRO 100 UNITS/ML SQ PRN (20:56)
[2018-09-13] MEDS: HYDROmorphone 2 MG/ML SYRINGE IVP PRN ×4 (04:04→11:53)
[2018-09-13 04:57] VITALS: BP 139/74
[2018-09-13 05:00] LABS: GLUCOMETER DEV NAME(LOC) 5N.1; GLUCOSE,POINT OF CARE 192 MG/DL (70-110)
[2018-09-13] MEDS: METOCLOPRAMIDE HCL 5 MG TABLET PO SCH ×2 (06:30→11:43)
[2018-09-13] MEDS: INSULIN LISPRO 100 UNITS/ML SQ PRN (06:38)
[2018-09-13 07:39] VITALS: BP 133/73
[2018-09-13] MEDS: EPOETIN ALFA 10,000 UNITS/ML VIAL SQ SCH (09:00)
[2018-09-13] MEDS: FAMOTIDINE 10 MG/ML 2 ML VIAL IVP SCH (09:00)
[2018-09-13] MEDS: CARVEDILOL 25 MG TABLET PO SCH (09:22)
[2018-09-13] MEDS: AmLODIPine BESYLATE 10 MG TABLET PO SCH (09:22)
[2018-09-13 12:00] VITALS: BP 141/85
[2018-09-13 13:35] LABS: GLUCOMETER DEV NAME(LOC) 5S.1; GLUCOSE,POINT OF CARE 169 MG/DL (70-110)
[2018-09-13] MEDS ORDERED: ATOR20TA86 PO (13:48)
[2018-09-15 12:05] LABS: GLUCOMETER DEV NAME(LOC) 5S.3; GLUCOSE,POINT OF CARE 138 MG/DL (70-110)
[2018-09-15 12:05] LABS: GLUCOMETER DEV NAME(LOC) 5S.3; GLUCOSE,POINT OF CARE 155 MG/DL (70-110)
== END 2018-09-13 15:35 | disposition home or self-care (01) | DRG 48 ==
LOC: EMS 03:12 → 5S 04:36
PROVIDERS: ADMIT Hospitalist; ATTEND Hospitalist
PROC: 5A1D70Z Performance of Urinary Filtration, Intermittent, Less than 6 Hours Per Day (ICD-10-PCS; principal; 2018-09-08)
PROC: 5A1D70Z Performance of Urinary Filtration, Intermittent, Less than 6 Hours Per Day (ICD-10-PCS; 2018-09-09)
PROC: 5A1D70Z Performance of Urinary Filtration, Intermittent, Less than 6 Hours Per Day (ICD-10-PCS; 2018-09-12)
DX: E11.43 Type 2 diabetes mellitus with diabetic autonomic (poly)neuropathy (principal); J90 Pleural effusion, not elsewhere classified; E11.22 Type 2 diabetes mellitus with diabetic chronic kidney disease; R18.8 Other ascites; E44.0 Moderate protein-calorie malnutrition; E87.5 Hyperkalemia; I12.0 Hypertensive chronic kidney disease with stage 5 chronic kidney disease or end stage renal disease; E11.51 Type 2 diabetes mellitus with diabetic peripheral angiopathy without gangrene; I31.3 Pericardial effusion (noninflammatory); K31.84 Gastroparesis; N18.6 End stage renal disease; F32.9 Major depressive disorder, single episode, unspecified; F17.210 Nicotine dependence, cigarettes, uncomplicated; B19.20 Unspecified viral hepatitis C without hepatic coma; F12.90 Cannabis use, unspecified, uncomplicated; F43.10 Post-traumatic stress disorder, unspecified; D63.1 Anemia in chronic kidney disease; E78.5 Hyperlipidemia, unspecified; Z89.512 Acquired absence of left leg below knee; Z99.2 Dependence on renal dialysis; Z91.19 Patient's noncompliance with other medical treatment and regimen; Z76.5 Malingerer [conscious simulation]; Z79.4 Long term (current) use of insulin; Z79.899 Other long term (current) drug therapy; Z68.26 Body mass index [BMI] 26.0-26.9, adult; Z88.0 Allergy status to penicillin; Z88.8 Allergy status to other drugs, medicaments and biological substances; Z88.5 Allergy status to narcotic agent
CPT/HCPCS: 74176; 83036; 83540; 83550; 83605; 83735; 84100; 84132; 87081; 87340; 93005; 94644; 96374; 96375; G0378; J0610; J0885; J1170; J1815; J2405; J2765; J3490; J7030

== ENCOUNTER 2018-09-22 23:30 | Inpatient (IN) | payer OTHER ==
[~2018-09-22] VITALS: Ht 170.2 cm; Wt 77.6 kg
[~2018-09-22 23:30] MED LIST changes: -ATOR10TA69 PO; +ATOR20TA86 PO; -PERCT PO
[2018-09-22 23:59] LABS: GLUCOSE,POINT OF CARE 141 MG/DL (70-110)
[2018-09-23] MEDS ORDERED: SODIUM CHLORIDE 0.9% 1,000 ML IV ONE (00:06)
[2018-09-23] MEDS ORDERED: MORPHINE SULFATE 4 MG/ML SYRINGE IVP ONE (00:15)
[2018-09-23] MEDS ORDERED: HYDROmorphone 2 MG/ML SYRINGE IVP ONE ×2 (00:15→02:15)
[2018-09-23] MEDS ORDERED: ONDANSETRON HCL 4 MG/2 ML VIAL IVP ONE (00:15)
[2018-09-23 00:17] LABS: BASOPHILS % (AUTO) 1.2 % (0.0-2.0); EOSINOPHILS % (AUTO) 4.9 % (1.0-6.0); HEMATOCRIT 25.4 % (41-53); HEMOGLOBIN 8.2 g/dL (13.5-17.5); LYMPHOCYTES # (AUTO) 1.1 K/uL (1.0-4.8); LYMPHOCYTES % (AUTO) 16.7 % (22.0-44.0); MEAN CORPUSCULAR HEMOGLOBIN 29.7 pg (26.0-34.0); MEAN CORPUSCULAR HGB CONC 32.2 G/dL (31.0-37.0); MEAN CORPUSCULAR VOLUME 92 fL (80-100); MONOCYTES # (AUTO) 0.9 K/uL (0.1-1.0); MONOCYTES % (AUTO) 14.2 % (2.0-9.0); NEUTROPHILS # (AUTO) 4.2 K/uL (1.8-7.7); PLATELET COUNT (AUTO) 306 K/uL (150-450); RED BLOOD CELL COUNT(AUTO) 2.75 MIL/uL (4.50-5.90); RED CELL DISTRIBUTION WIDTH 16.6 % (11.5-14.5)
[2018-09-23 00:31] LABS: ALBUMIN 3.2 g/dL (3.4-5.0); BILIRUBIN,TOTAL 0.4 mg/dL (0.1-1.0); CALCIUM, TOTAL 8.3 mg/dL (8.8-10.5); CREATININE 9.23 mg/dL (0.60-1.30); TOTAL PROTEIN, SERUM 7.8 g/dL (6.4-8.2)
[2018-09-23 00:33] LABS: POTASSIUM 6.2 mmol/L (3.5-5.1)
[2018-09-23] MEDS ORDERED: SODIUM POLYSTYRENE SULFONATE 15 GM/60 ML SUSPENSION BOTTLE PO ONE (01:45)
[2018-09-23 05:09] VITALS: BP 218/120
[2018-09-23] MEDS ORDERED: BISACODYL 10 MG RECTAL RECTAL SUPPOSITORY PR PRN (05:45)
[2018-09-23] MEDS ORDERED: ACETAMINOPHEN 325 MG TABLET PO PRN (05:45)
[2018-09-23] MEDS ORDERED: ONDANSETRON HCL 4 MG/2 ML VIAL IVP PRN (05:45)
[2018-09-23] MEDS ORDERED: DEXTROSE 50%-WATER 25 GM/50 ML SYRINGE IVP PRN (06:00)
[2018-09-23] MEDS: HYDROmorphone 2 MG/ML SYRINGE IVP PRN ×5 (06:03→22:20)
[2018-09-23] MEDS: CloNIDine HCL 0.1 MG TABLET PO PRN (06:03)
[2018-09-23 07:24] LABS: GLUCOMETER DEV NAME(LOC) 5N.2; GLUCOSE,POINT OF CARE 128 MG/DL (70-110)
[2018-09-23 07:33] VITALS: BP 164/86
[2018-09-23] MEDS: DOCUSATE SODIUM 100 MG CAPSULE PO SCH ×2 (08:53→21:00)
[2018-09-23] MEDS: AmLODIPine BESYLATE 10 MG TABLET PO SCH (08:54)
[2018-09-23] MEDS: FAMOTIDINE 20 MG TABLET PO SCH (08:54)
[2018-09-23] MEDS ORDERED: DiphenhydrAMINE HCL 50 MG/ML VIAL IVP ONE (09:15)
[2018-09-23] MEDS ORDERED: EPOETIN ALFA 10,000 UNITS/ML 2 ML VIAL SQ SCH (11:26)
[2018-09-23] MEDS ORDERED: DOXERCALCIFEROL 4 MCG/2 ML VIAL IVP PRN (11:30)
[2018-09-23 11:55] VITALS: BP 167/97
[2018-09-23 12:24] LABS: GLUCOMETER DEV NAME(LOC) 5S.1; GLUCOSE,POINT OF CARE 103 MG/DL (70-110)
[2018-09-23] MEDS: VITAMIN B COMP/VIT C/FOLIC ACID CAPSULE PO SCH (14:17)
[2018-09-23 15:08] VITALS: BP 163/93
[2018-09-23 18:14] LABS: GLUCOMETER DEV NAME(LOC) 5S.1; GLUCOSE,POINT OF CARE 109 MG/DL (70-110)
[2018-09-23] MEDS: SEVELAMER CARBONATE 800 MG TABLET PO SCH (18:24)
[2018-09-23 22:00] VITALS: BP 157/77
[2018-09-24 00:06] VITALS: BP 157/77
[2018-09-24 00:49] LABS: GLUCOMETER DEV NAME(LOC) 5N.2; GLUCOSE,POINT OF CARE 175 MG/DL (70-110)
[2018-09-24] MEDS: HYDROmorphone 2 MG/ML SYRINGE IVP PRN ×6 (02:21→22:22)
[2018-09-24 03:53] VITALS: BP 190/91
[2018-09-24] MEDS: CloNIDine HCL 0.1 MG TABLET PO PRN ×2 (04:05→20:28)
[2018-09-24 06:26] LABS: BASOPHILS % (AUTO) 1.3 % (0.0-2.0); EOSINOPHILS % (AUTO) 4.8 % (1.0-6.0); HEMATOCRIT 22.6 % (41-53); HEMOGLOBIN 7.5 g/dL (13.5-17.5); LYMPHOCYTES # (AUTO) 0.8 K/uL (1.0-4.8); LYMPHOCYTES % (AUTO) 18.1 % (22.0-44.0); MEAN CORPUSCULAR HEMOGLOBIN 30.4 pg (26.0-34.0); MEAN CORPUSCULAR HGB CONC 33.3 G/dL (31.0-37.0); MEAN CORPUSCULAR VOLUME 91 fL (80-100); MONOCYTES # (AUTO) 0.8 K/uL (0.1-1.0); MONOCYTES % (AUTO) 17.7 % (2.0-9.0); NEUTROPHILS # (AUTO) 2.6 K/uL (1.8-7.7); NEUTROPHILS % (AUTO) 58.1 % (40.0-70.0); PLATELET COUNT (AUTO) 268 K/uL (150-450); RED BLOOD CELL COUNT(AUTO) 2.48 MIL/uL (4.50-5.90); RED CELL DISTRIBUTION WIDTH 16.4 % (11.5-14.5)
[2018-09-24 06:46] LABS: ALBUMIN 2.7 g/dL (3.4-5.0); BILIRUBIN,TOTAL 0.4 mg/dL (0.1-1.0); CALCIUM, TOTAL 8.1 mg/dL (8.8-10.5); CREATININE 6.17 mg/dL (0.60-1.30); POTASSIUM 4.2 mmol/L (3.5-5.1); TOTAL PROTEIN, SERUM 6.8 g/dL (6.4-8.2)
[2018-09-24 07:37] VITALS: BP 166/88
[2018-09-24 07:44] LABS: GLUCOMETER DEV NAME(LOC) 5S.1; GLUCOSE,POINT OF CARE 143 MG/DL (70-110)
[2018-09-24 07:44] LABS: GLUCOMETER DEV NAME(LOC) 5S.1; GLUCOSE,POINT OF CARE 180 MG/DL (70-110)
[2018-09-24] MEDS: SEVELAMER CARBONATE 800 MG TABLET PO SCH ×2 (08:35→20:00)
[2018-09-24] MEDS: FAMOTIDINE 20 MG TABLET PO SCH (08:35)
[2018-09-24] MEDS: VITAMIN B COMP/VIT C/FOLIC ACID CAPSULE PO SCH (08:40)
[2018-09-24] MEDS: [UNRECOGNIZED DRUG - REMARK] MISC SCH (09:00)
[2018-09-24] MEDS: DOCUSATE SODIUM 100 MG CAPSULE PO SCH ×2 (09:00→20:40)
[2018-09-24 11:18] VITALS: BP 177/94
[2018-09-24 12:14] LABS: GLUCOMETER DEV NAME(LOC) 5N.2; GLUCOSE,POINT OF CARE 174 MG/DL (70-110)
[2018-09-24] MEDS: AmLODIPine BESYLATE 10 MG TABLET PO SCH (12:41)
[2018-09-24] MEDS: INSULIN LISPRO 100 UNITS/ML SQ PRN (12:42)
[2018-09-24 15:43] VITALS: BP 164/92
[2018-09-25 00:01] VITALS: BP 188/85
[2018-09-25] MEDS: HYDROmorphone 2 MG/ML SYRINGE IVP PRN ×6 (02:11→22:50)
[2018-09-25] MEDS: CloNIDine HCL 0.1 MG TABLET PO PRN (05:41)
[2018-09-25 05:54] VITALS: BP 199/100
[2018-09-25 06:19] LABS: GLUCOMETER DEV NAME(LOC) 5S.1; GLUCOSE,POINT OF CARE 174 MG/DL (70-110)
[2018-09-25 06:48] LABS: BASOPHILS % (AUTO) 1.5 % (0.0-2.0); EOSINOPHILS % (AUTO) 4.7 % (1.0-6.0); HEMATOCRIT 23.9 % (41-53); LYMPHOCYTES % (AUTO) 21.1 % (22.0-44.0); MEAN CORPUSCULAR HEMOGLOBIN 30.4 pg (26.0-34.0); MEAN CORPUSCULAR HGB CONC 33.7 G/dL (31.0-37.0); MEAN CORPUSCULAR VOLUME 90 fL (80-100); MONOCYTES # (AUTO) 0.9 K/uL (0.1-1.0); MONOCYTES % (AUTO) 19.1 % (2.0-9.0); NEUTROPHILS # (AUTO) 2.5 K/uL (1.8-7.7); NEUTROPHILS % (AUTO) 53.6 % (40.0-70.0); PLATELET COUNT (AUTO) 275 K/uL (150-450); RED BLOOD CELL COUNT(AUTO) 2.64 MIL/uL (4.50-5.90); RED CELL DISTRIBUTION WIDTH 16.4 % (11.5-14.5)
[2018-09-25 07:18] LABS: CALCIUM, TOTAL 8.5 mg/dL (8.8-10.5); CREATININE 5.48 mg/dL (0.60-1.30); POTASSIUM 3.9 mmol/L (3.5-5.1)
[2018-09-25] MEDS: SEVELAMER CARBONATE 800 MG TABLET PO SCH ×2 (08:00→17:46)
[2018-09-25] MEDS: VITAMIN B COMP/VIT C/FOLIC ACID CAPSULE PO SCH (09:00)
[2018-09-25] MEDS ORDERED: HydrALAZINE HCL 20 MG/ML VIAL IVP PRN (09:00)
[2018-09-25] MEDS: [UNRECOGNIZED DRUG - REMARK] MISC SCH (09:00)
[2018-09-25] MEDS: AmLODIPine BESYLATE 10 MG TABLET PO SCH ×2 (09:31→21:47)
[2018-09-25 09:47] VITALS: BP 210/95
[2018-09-25 10:14] LABS: GLUCOMETER DEV NAME(LOC) 5N.2; GLUCOSE,POINT OF CARE 192 MG/DL (70-110)
[2018-09-25 10:14] LABS: GLUCOMETER DEV NAME(LOC) 5N.2; GLUCOSE,POINT OF CARE 114 MG/DL (70-110)
[2018-09-25 12:17] VITALS: BP 145/76
[2018-09-25] MEDS: HydrALAZINE HCL 50 MG TABLET PO SCH ×3 (13:33→21:48)
[2018-09-25] MEDS: DOCUSATE SODIUM 100 MG CAPSULE PO SCH ×2 (13:33→21:46)
[2018-09-25] MEDS: FAMOTIDINE 20 MG TABLET PO SCH (13:34)
[2018-09-25 16:14] VITALS: BP 150/81
[2018-09-25 20:44] VITALS: BP 155/79
[2018-09-26 00:25] VITALS: BP 152/81
[2018-09-26] MEDS: HYDROmorphone 2 MG/ML SYRINGE IVP PRN ×4 (02:53→15:03)
[2018-09-26 04:29] LABS: GLUCOMETER DEV NAME(LOC) 5S.1; GLUCOSE,POINT OF CARE 186 MG/DL (70-110)
[2018-09-26 04:50] VITALS: BP 163/76
[2018-09-26] MEDS: INSULIN LISPRO 100 UNITS/ML SQ PRN (07:00)
[2018-09-26 07:16] VITALS: BP 158/78
[2018-09-26] MEDS ORDERED: SODIUM CHLORIDE 0.9% 2,000 ML IV ONE (07:59)
[2018-09-26] MEDS: SEVELAMER CARBONATE 800 MG TABLET PO SCH ×3 (08:00→12:31)
[2018-09-26] MEDS: [UNRECOGNIZED DRUG - REMARK] MISC SCH (09:00)
[2018-09-26 11:36] VITALS: BP 169/96
[2018-09-26 11:39] LABS: GLUCOMETER DEV NAME(LOC) 5N.2; GLUCOSE,POINT OF CARE 176 MG/DL (70-110)
[2018-09-26] MEDS: FAMOTIDINE 20 MG TABLET PO SCH (12:25)
[2018-09-26] MEDS: VITAMIN B COMP/VIT C/FOLIC ACID CAPSULE PO SCH ×2 (12:25→12:32)
[2018-09-26] MEDS: DOCUSATE SODIUM 100 MG CAPSULE PO SCH ×2 (12:25→12:31)
[2018-09-26] MEDS: HydrALAZINE HCL 50 MG TABLET PO SCH ×3 (12:25→16:34)
[2018-09-26] MEDS: AmLODIPine BESYLATE 10 MG TABLET PO SCH (12:25)
[2018-09-26 15:00] LABS: GLUCOMETER DEV NAME(LOC) 5S.1; GLUCOSE,POINT OF CARE 128 MG/DL (70-110)
[2018-09-26 15:09] VITALS: BP 166/78
[2018-09-26 18:10] LABS: GLUCOMETER DEV NAME(LOC) 5S.1; GLUCOSE,POINT OF CARE 178 MG/DL (70-110)
== END 2018-09-26 18:00 | disposition home or self-care (01) | DRG 48 ==
LOC: EMS 23:32 → 5S 09-23 02:16
PROVIDERS: ADMIT Internal Medicine; ATTEND Internal Medicine
PROC: 5A1D70Z Performance of Urinary Filtration, Intermittent, Less than 6 Hours Per Day (ICD-10-PCS; principal; 2018-09-23)
PROC: 5A1D70Z Performance of Urinary Filtration, Intermittent, Less than 6 Hours Per Day (ICD-10-PCS; 2018-09-25)
PROC: 5A1D70Z Performance of Urinary Filtration, Intermittent, Less than 6 Hours Per Day (ICD-10-PCS; 2018-09-26)
DX: E11.43 Type 2 diabetes mellitus with diabetic autonomic (poly)neuropathy (principal); E43 Unspecified severe protein-calorie malnutrition; E11.22 Type 2 diabetes mellitus with diabetic chronic kidney disease; F11.20 Opioid dependence, uncomplicated; E11.65 Type 2 diabetes mellitus with hyperglycemia; E11.51 Type 2 diabetes mellitus with diabetic peripheral angiopathy without gangrene; I12.0 Hypertensive chronic kidney disease with stage 5 chronic kidney disease or end stage renal disease; K31.84 Gastroparesis; E11.319 Type 2 diabetes mellitus with unspecified diabetic retinopathy without macular edema; N18.6 End stage renal disease; D63.1 Anemia in chronic kidney disease; E83.39 Other disorders of phosphorus metabolism; E87.5 Hyperkalemia; F17.200 Nicotine dependence, unspecified, uncomplicated; F43.10 Post-traumatic stress disorder, unspecified; H54.8 Legal blindness, as defined in USA; F12.90 Cannabis use, unspecified, uncomplicated; B19.20 Unspecified viral hepatitis C without hepatic coma; I25.10 Atherosclerotic heart disease of native coronary artery without angina pectoris; F32.9 Major depressive disorder, single episode, unspecified; K74.60 Unspecified cirrhosis of liver; N25.0 Renal osteodystrophy; Z91.15 Patient's noncompliance with renal dialysis; Z89.512 Acquired absence of left leg below knee; Z76.5 Malingerer [conscious simulation]; Z79.4 Long term (current) use of insulin; Z91.19 Patient's noncompliance with other medical treatment and regimen; Z99.2 Dependence on renal dialysis; Z88.5 Allergy status to narcotic agent; Z88.0 Allergy status to penicillin; Z68.26 Body mass index [BMI] 26.0-26.9, adult
CPT/HCPCS: 74176; 87081; G0378; J0360; J0885; J1170; J1200; J1270; J2405; J7030

== ENCOUNTER 2018-09-28 05:10 | Emergency (ER) | payer OTHER ==
[~2018-09-28] VITALS: Ht 172.7 cm; Wt 79.2 kg
[2018-09-28 05:28] LABS: GLUCOSE,POINT OF CARE 254 MG/DL (70-110)
[2018-09-28] MEDS ORDERED: HALOPERIDOL LACTATE 5 MG/ML VIAL IVP ONE (06:15)
[2018-09-28] MEDS ORDERED: LORazepam 2 MG/ML VIAL IVP ONE ×2 (06:15→08:00)
[2018-09-28 06:34] LABS: BASOPHILS % (AUTO) 1.2 % (0.0-2.0); HEMATOCRIT 24.7 % (41-53); HEMOGLOBIN 8.1 g/dL (13.5-17.5); LYMPHOCYTES % (AUTO) 14.3 % (22.0-44.0); MEAN CORPUSCULAR HEMOGLOBIN 30.2 pg (26.0-34.0); MEAN CORPUSCULAR HGB CONC 32.8 G/dL (31.0-37.0); MEAN CORPUSCULAR VOLUME 92 fL (80-100); MONOCYTES % (AUTO) 14.3 % (2.0-9.0); NEUTROPHILS # (AUTO) 4.4 K/uL (1.8-7.7); NEUTROPHILS % (AUTO) 66.2 % (40.0-70.0); PLATELET COUNT (AUTO) 302 K/uL (150-450); RED BLOOD CELL COUNT(AUTO) 2.69 MIL/uL (4.50-5.90); RED CELL DISTRIBUTION WIDTH 16.2 % (11.5-14.5)
[2018-09-28 06:43] LABS: CALCIUM, TOTAL 8.1 mg/dL (8.8-10.5); CREATININE 6.64 mg/dL (0.60-1.30); POTASSIUM 5.4 mmol/L (3.5-5.1)
[2018-09-28 06:49] LABS: BILIRUBIN,TOTAL 0.4 mg/dL (0.1-1.0); TOTAL PROTEIN, SERUM 7.4 g/dL (6.4-8.2)
[2018-09-28] MEDS ORDERED: ACETAMINOPHEN 1000 MG/ISO-OSM 100 ML IV ONE (08:00)
[2018-09-28 08:24] VITALS: BP 182/76
== END 2018-09-28 08:33 | disposition home or self-care (01) ==
LOC: EMS 05:12
DX: F12.188 Cannabis abuse with other cannabis-induced disorder (principal); I13.11 Hypertensive heart and chronic kidney disease without heart failure, with stage 5 chronic kidney disease, or end stage renal disease; E11.22 Type 2 diabetes mellitus with diabetic chronic kidney disease; N18.6 End stage renal disease; F32.9 Major depressive disorder, single episode, unspecified; F17.210 Nicotine dependence, cigarettes, uncomplicated; F12.90 Cannabis use, unspecified, uncomplicated; Z99.2 Dependence on renal dialysis; Z79.4 Long term (current) use of insulin; Z88.5 Allergy status to narcotic agent; Z88.0 Allergy status to penicillin; Z88.6 Allergy status to analgesic agent
CPT/HCPCS: 36415; 80053; 82962; 83690; 85025; 93005; 96374; 96375; 99285; J1630; J2060

== ENCOUNTER 2018-10-06 14:37 | Emergency (ER) | payer OTHER ==
[~2018-10-06] VITALS: Ht 172.7 cm; Wt 72.7 kg
[~2018-10-06 14:37] MED LIST changes: -AMLO-512 PO; +AMLO10TA7 PO; -CARV25 PO
[2018-10-06] MEDS: LORazepam 2 MG/ML VIAL IM ONE ×2 (16:40→17:11)
[2018-10-06] MEDS: HALOPERIDOL LACTATE 5 MG/ML VIAL IM ONE ×2 (16:41→17:11)
[2018-10-06 17:02] LABS: BASOPHILS % (AUTO) 0.7 % (0.0-2.0); EOSINOPHILS % (AUTO) 3.5 % (1.0-6.0); HEMATOCRIT 23.9 % (41-53); HEMOGLOBIN 7.7 g/dL (13.5-17.5); LYMPHOCYTES # (AUTO) 1.2 K/uL (1.0-4.8); LYMPHOCYTES % (AUTO) 16.2 % (22.0-44.0); MEAN CORPUSCULAR HEMOGLOBIN 29.8 pg (26.0-34.0); MEAN CORPUSCULAR HGB CONC 32.1 G/dL (31.0-37.0); MEAN CORPUSCULAR VOLUME 93 fL (80-100); MONOCYTES # (AUTO) 1.5 K/uL (0.1-1.0); MONOCYTES % (AUTO) 20.4 % (2.0-9.0); NEUTROPHILS # (AUTO) 4.3 K/uL (1.8-7.7); NEUTROPHILS % (AUTO) 59.2 % (40.0-70.0); PLATELET COUNT (AUTO) 295 K/uL (150-450); RED BLOOD CELL COUNT(AUTO) 2.57 MIL/uL (4.50-5.90); RED CELL DISTRIBUTION WIDTH 16.2 % (11.5-14.5)
[2018-10-06 17:11] LABS: CALCIUM, TOTAL 8.1 mg/dL (8.8-10.5); CREATININE 5.55 mg/dL (0.60-1.30); POTASSIUM 4.2 mmol/L (3.5-5.1)
[2018-10-06 17:17] LABS: ALBUMIN 2.9 g/dL (3.4-5.0); BILIRUBIN,TOTAL 0.3 mg/dL (0.1-1.0); TOTAL PROTEIN, SERUM 6.9 g/dL (6.4-8.2)
[2018-10-06 21:05] VITALS: BP 136/80
== END 2018-10-06 21:05 | disposition home or self-care (01) ==
LOC: EMS 14:39
DX: R10.84 Generalized abdominal pain (principal); R11.2 Nausea with vomiting, unspecified; R19.7 Diarrhea, unspecified; I12.0 Hypertensive chronic kidney disease with stage 5 chronic kidney disease or end stage renal disease; E11.22 Type 2 diabetes mellitus with diabetic chronic kidney disease; N18.6 End stage renal disease; D64.9 Anemia, unspecified; F32.9 Major depressive disorder, single episode, unspecified; F12.90 Cannabis use, unspecified, uncomplicated; F17.210 Nicotine dependence, cigarettes, uncomplicated; Z99.2 Dependence on renal dialysis; Z88.0 Allergy status to penicillin; Z88.5 Allergy status to narcotic agent; Z88.8 Allergy status to other drugs, medicaments and biological substances; Z79.4 Long term (current) use of insulin; Z79.899 Other long term (current) drug therapy
CPT/HCPCS: 36415; 80053; 83690; 85025; 96372; 99283; J1630; J2060

== ENCOUNTER 2018-10-10 22:40 | Emergency (ER) | payer OTHER ==
[~2018-10-10] VITALS: Ht 172.7 cm; Wt 75.5 kg
[2018-10-10 23:03] VITALS: BP 212/117
== END 2018-10-10 23:03 | disposition left against medical advice (07) ==
LOC: EMS 22:41
DX: R10.84 Generalized abdominal pain (principal); I12.0 Hypertensive chronic kidney disease with stage 5 chronic kidney disease or end stage renal disease; E11.22 Type 2 diabetes mellitus with diabetic chronic kidney disease; N18.6 End stage renal disease; F32.9 Major depressive disorder, single episode, unspecified; F12.90 Cannabis use, unspecified, uncomplicated; F17.210 Nicotine dependence, cigarettes, uncomplicated; Z99.2 Dependence on renal dialysis; Z79.4 Long term (current) use of insulin; Z79.899 Other long term (current) drug therapy; Z88.0 Allergy status to penicillin; Z88.5 Allergy status to narcotic agent; Z88.8 Allergy status to other drugs, medicaments and biological substances

== ENCOUNTER 2018-10-24 08:00 | Emergency (ER) | payer OTHER ==
[~2018-10-24] VITALS: Ht 172.7 cm; Wt 75.0 kg
[2018-10-24 08:41] LABS: BASOPHILS % (AUTO) 0.7 % (0.0-2.0); EOSINOPHILS % (AUTO) 1.4 % (1.0-6.0); HEMATOCRIT 26.1 % (41-53); HEMOGLOBIN 8.5 g/dL (13.5-17.5); LYMPHOCYTES # (AUTO) 0.7 K/uL (1.0-4.8); LYMPHOCYTES % (AUTO) 5.9 % (22.0-44.0); MEAN CORPUSCULAR HEMOGLOBIN 30.1 pg (26.0-34.0); MEAN CORPUSCULAR HGB CONC 32.5 G/dL (31.0-37.0); MEAN CORPUSCULAR VOLUME 93 fL (80-100); MONOCYTES % (AUTO) 16.4 % (2.0-9.0); NEUTROPHILS # (AUTO) 9.3 K/uL (1.8-7.7); NEUTROPHILS % (AUTO) 75.6 % (40.0-70.0); PLATELET COUNT (AUTO) 294 K/uL (150-450); RED BLOOD CELL COUNT(AUTO) 2.82 MIL/uL (4.50-5.90); RED CELL DISTRIBUTION WIDTH 15.1 % (11.5-14.5)
[2018-10-24] MEDS ORDERED: DiphenhydrAMINE HCL 25 MG CAPSULE PO ONE (08:45)
[2018-10-24] MEDS ORDERED: METOCLOPRAMIDE HCL 10 MG TABLET PO ONE (08:45)
[2018-10-24] MEDS ORDERED: SODIUM CHLORIDE 0.9% 500 ML IV ONE (08:45)
[2018-10-24 08:56] LABS: CALCIUM, TOTAL 8.3 mg/dL (8.8-10.5); CREATININE 5.96 mg/dL (0.60-1.30); POTASSIUM 4.8 mmol/L (3.5-5.1)
[2018-10-24 09:00] LABS: ALBUMIN 2.9 g/dL (3.4-5.0); BILIRUBIN,TOTAL 0.6 mg/dL (0.1-1.0); TOTAL PROTEIN, SERUM 7.6 g/dL (6.4-8.2)
[2018-10-24 09:32] VITALS: BP 169/94
== END 2018-10-24 10:56 | disposition left against medical advice (07) ==
LOC: EMS 08:02
DX: I12.0 Hypertensive chronic kidney disease with stage 5 chronic kidney disease or end stage renal disease (principal); E11.22 Type 2 diabetes mellitus with diabetic chronic kidney disease; N18.6 End stage renal disease; R18.8 Other ascites; F17.210 Nicotine dependence, cigarettes, uncomplicated; F12.90 Cannabis use, unspecified, uncomplicated; F32.9 Major depressive disorder, single episode, unspecified; Z99.2 Dependence on renal dialysis; Z88.6 Allergy status to analgesic agent; Z88.5 Allergy status to narcotic agent; Z88.0 Allergy status to penicillin
CPT/HCPCS: 74176; 93005

== ENCOUNTER 2018-11-14 17:52 | Emergency (ER) | payer OTHER ==
[~2018-11-14] VITALS: Ht 172.7 cm; Wt 75.0 kg
[~2018-11-14 17:52] MED LIST changes: -ACET-2247 PO; -EPOE10003 SQ; -SERT50TA12 PO; +SEVE800T17 PO; -SEVEC800 PO
[2018-11-14] MEDS ORDERED: LORazepam 2 MG/ML VIAL IM ONE (18:15)
[2018-11-14] MEDS ORDERED: HALOPERIDOL LACTATE 5 MG/ML VIAL IM ONE (18:15)
[2018-11-14 18:30] LABS: GLUCOSE,POINT OF CARE 210 MG/DL (70-110)
[2018-11-14 19:07] VITALS: BP 124/69
== END 2018-11-14 19:10 | disposition left against medical advice (07) ==
LOC: EMS 17:52
DX: R10.84 Generalized abdominal pain (principal); F17.210 Nicotine dependence, cigarettes, uncomplicated; F12.90 Cannabis use, unspecified, uncomplicated; I10 Essential (primary) hypertension; E11.9 Type 2 diabetes mellitus without complications; Z88.0 Allergy status to penicillin; Z88.5 Allergy status to narcotic agent; Z88.8 Allergy status to other drugs, medicaments and biological substances; Z79.899 Other long term (current) drug therapy

== ENCOUNTER 2018-11-18 08:24 | Inpatient (IN) | payer OTHER ==
[~2018-11-18] VITALS: Ht 172.7 cm; Wt 82.7 kg
[2018-11-18] MEDS ORDERED: LORazepam 2 MG/ML VIAL IVP ONE ×2 (09:00→21:15)
[2018-11-18] MEDS ORDERED: HYDROmorphone 2 MG/ML SYRINGE IVP ONE ×2 (09:15→21:15)
[2018-11-18] MEDS ORDERED: METOCLOPRAMIDE HCL 5 MG/ML 2 ML VIAL IVP ONE (09:15)
[2018-11-18 09:17] LABS: BASOPHILS % (AUTO) 0.7 % (0.0-2.0); EOSINOPHILS % (AUTO) 2.6 % (1.0-6.0); HEMATOCRIT 23.6 % (41-53); HEMOGLOBIN 7.7 g/dL (13.5-17.5); LYMPHOCYTES # (AUTO) 0.7 K/uL (1.0-4.8); LYMPHOCYTES % (AUTO) 6.6 % (22.0-44.0); MEAN CORPUSCULAR HEMOGLOBIN 29.7 pg (26.0-34.0); MEAN CORPUSCULAR HGB CONC 32.5 G/dL (31.0-37.0); MEAN CORPUSCULAR VOLUME 91 fL (80-100); MONOCYTES # (AUTO) 1.2 K/uL (0.1-1.0); MONOCYTES % (AUTO) 12.6 % (2.0-9.0); NEUTROPHILS # (AUTO) 7.6 K/uL (1.8-7.7); NEUTROPHILS % (AUTO) 77.5 % (40.0-70.0); PLATELET COUNT (AUTO) 343 K/uL (150-450); RED BLOOD CELL COUNT(AUTO) 2.58 MIL/uL (4.50-5.90); RED CELL DISTRIBUTION WIDTH 14.9 % (11.5-14.5)
[2018-11-18 09:36] LABS: PROTHROMBIN TIME 10.7 SEC (9.4-11.6)
[2018-11-18 09:41] LABS: ALANINE AMINOTRANSFERASE 13 U/L (12-78); ALKALINE PHOSPHATASE 134 U/L (46-116); ANION GAP 7 mmol/L (8-16); ASPARTATE AMINOTRANSFERASE 15 U/L (15-37); BILIRUBIN,TOTAL 0.5 mg/dL (0.1-1.0); CALCIUM, TOTAL 7.9 mg/dL (8.8-10.5); CARBON DIOXIDE 27 mmol/L (22-29); CHLORIDE 98 mmol/L (98-107); CREATININE 8.13 mg/dL (0.60-1.30); GLOMERULAR FILTR. RATE CALC 8 mL/min (>60); GLUCOSE,RANDOM 147 mg/dL (70-110); LIPASE 287 U/L (73-393); SODIUM SERUM 132 mmol/L (136-145); TOTAL PROTEIN, SERUM 7.4 g/dL (6.4-8.2); UREA NITROGEN, BLOOD 69 mg/dL (7-18)
[2018-11-18 09:49] LABS: B-TYPE NATRIURETIC PEPTIDE 3040 pg/mL (0-100)
[2018-11-18 09:58] LABS: LACTIC ACID 0.4 mmol/L (0.4-2.0)
[2018-11-18] MEDS ORDERED: INSULIN REGULAR, HUMAN 100 UNITS/ML IVP ONE (10:15)
[2018-11-18] MEDS ORDERED: SODIUM BICARBONATE [ADULT] 8.4% 50 MEQ/50 ML SYRINGE IVP ONE (10:15)
[2018-11-18] MEDS ORDERED: CALCIUM GLUCONATE 100 MG/ML 10 ML IVP ONE (10:15)
[2018-11-18] MEDS ORDERED: DEXTROSE 50%-WATER 25 GM/50 ML SYRINGE IVP ONE ×2 (10:15→13:45)
[2018-11-18 10:22] LABS: TROPONIN I 0.05 ng/mL (0.00-0.05)
[2018-11-18] MEDS ORDERED: 0.9% SODIUM CHLORIDE 10 ML SYRINGE IVP PRN (11:00)
[2018-11-18] MEDS ORDERED: ONDANSETRON HCL 4 MG/2 ML VIAL IVP PRN ×2 (11:00→14:30)
[2018-11-18] MEDS ORDERED: ACETAMINOPHEN 325 MG TABLET PO PRN ×2 (11:00→14:30)
[2018-11-18] MEDS ORDERED: ACETAMINOPHEN 160 MG/5 ML SUSPENSION UDCUP PO ONE (11:30)
[2018-11-18] MEDS ORDERED: ACETAMINOPHEN 1000 MG/ISO-OSM 100 ML IV ONE (12:30)
[2018-11-18 13:30] LABS: GLUCOSE,POINT OF CARE 39 MG/DL (70-110)
[2018-11-18 14:16] LABS: GLUCOSE,POINT OF CARE 87 MG/DL (70-110)
[2018-11-18] MEDS ORDERED: BISACODYL 10 MG RECTAL RECTAL SUPPOSITORY PR PRN (14:30)
[2018-11-18] MEDS ORDERED: MAGNESIUM HYDROXIDE SUSPENSION 30 ML UDCUP PO PRN (14:30)
[2018-11-18] MEDS ORDERED: DEXTROSE 5%-0.45% SODIUM CHL 500 ML IV ONE (14:30)
[2018-11-18] MEDS ORDERED: ZOLPIDEM TARTRATE 5 MG TABLET PO PRN (14:30)
[2018-11-18] MEDS: AmLODIPine BESYLATE 10 MG TABLET PO SCH ×2 (14:58→23:33)
[2018-11-18] MEDS: HEPARIN SODIUM,PORCINE 5,000 UNITS/ML VIAL SQ SCH ×3 (16:00→23:34)
[2018-11-18] MEDS: DEXTROSE 5%-0.45% SODIUM CHL 1,000 ML IV SCH (17:29)
[2018-11-18] MEDS: HYDROmorphone 2 MG/ML SYRINGE IVP PRN (17:57)
[2018-11-18 21:12] VITALS: BP 161/98
[2018-11-18] MEDS: SEVELAMER CARBONATE 800 MG TABLET PO SCH (23:33)
[2018-11-18] MEDS: DOCUSATE SODIUM 100 MG CAPSULE PO SCH (23:33)
[2018-11-18] MEDS: ATORVASTATIN CALCIUM 20 MG TABLET PO SCH (23:33)
[2018-11-19 00:37] VITALS: BP 193/90
[2018-11-19] MEDS: HYDROmorphone 2 MG/ML SYRINGE IVP PRN ×2 (02:52→22:04)
[2018-11-19] MEDS: AmLODIPine BESYLATE 10 MG TABLET PO SCH ×2 (02:52→22:04)
[2018-11-19 04:14] VITALS: BP 176/97
[2018-11-19] MEDS: HydrALAZINE HCL 10 MG TABLET PO PRN ×2 (04:24→16:01)
[2018-11-19] MEDS ORDERED: HYDROmorphone 2 MG/ML SYRINGE IVP ONE ×2 (04:30→13:00)
[2018-11-19 06:08] LABS: BASOPHILS % (AUTO) 1.4 % (0.0-2.0); EOSINOPHILS % (AUTO) 4.8 % (1.0-6.0); HEMATOCRIT 25.9 % (41-53); HEMOGLOBIN 8.6 g/dL (13.5-17.5); LYMPHOCYTES # (AUTO) 0.8 K/uL (1.0-4.8); LYMPHOCYTES % (AUTO) 11.6 % (22.0-44.0); MEAN CORPUSCULAR HEMOGLOBIN 30.5 pg (26.0-34.0); MEAN CORPUSCULAR HGB CONC 33.2 G/dL (31.0-37.0); MEAN CORPUSCULAR VOLUME 92 fL (80-100); MONOCYTES % (AUTO) 16.1 % (2.0-9.0); NEUTROPHILS # (AUTO) 4.3 K/uL (1.8-7.7); NEUTROPHILS % (AUTO) 66.1 % (40.0-70.0); PLATELET COUNT (AUTO) 396 K/uL (150-450); RED BLOOD CELL COUNT(AUTO) 2.82 MIL/uL (4.50-5.90)
[2018-11-19 06:23] LABS: CALCIUM, TOTAL 8.7 mg/dL (8.8-10.5); CREATININE 5.3 mg/dL (0.60-1.30); POTASSIUM 5.2 mmol/L (3.5-5.1)
[2018-11-19] MEDS ORDERED: SODIUM CHLORIDE 0.9% 1,000 ML IV ONE ×2 (06:38→06:39)
[2018-11-19] MEDS: HEPARIN SODIUM,PORCINE 5,000 UNITS/ML VIAL SQ SCH ×3 (07:44→23:44)
[2018-11-19] MEDS: DOCUSATE SODIUM 100 MG CAPSULE PO SCH ×2 (07:44→21:00)
[2018-11-19] MEDS: SEVELAMER CARBONATE 800 MG TABLET PO SCH ×3 (07:45→18:00)
[2018-11-19] MEDS: CALCITRIOL 0.25 MCG CAPSULE PO SCH (07:45)
[2018-11-19] MEDS: PANTOPRAZOLE SODIUM 40 MG DR TABLET PO SCH (07:45)
[2018-11-19 07:49] VITALS: BP 150/119
[2018-11-19] MEDS ORDERED: HYDROmorphone 2 MG/ML SYRINGE IVP PRN ×2 (09:30→16:45)
[2018-11-19 11:24] VITALS: BP 171/101
[2018-11-19] MEDS ORDERED: ONDANSETRON HCL 4 MG/2 ML VIAL IVP PRN (13:00)
[2018-11-19] MEDS ORDERED: DOXERCALCIFEROL 0.5 MCG CAPSULE PO ONE (13:30)
[2018-11-19] MEDS: DEXTROSE 5%-0.45% SODIUM CHL 1,000 ML IV SCH (15:00)
[2018-11-19 15:43] VITALS: BP 183/104
[2018-11-19 18:50] LABS: GLUCOMETER DEV NAME(LOC) 5S.1; GLUCOSE,POINT OF CARE 120 MG/DL (70-110)
[2018-11-19] MEDS: ATORVASTATIN CALCIUM 20 MG TABLET PO SCH (22:04)
[2018-11-19 22:07] VITALS: BP 201/96
[2018-11-20] MEDS: HydrALAZINE HCL 10 MG TABLET PO PRN (00:11)
[2018-11-20 00:14] VITALS: BP 167/90
[2018-11-20 04:11] VITALS: BP 150/87
[2018-11-20 05:51] LABS: GLUCOMETER DEV NAME(LOC) 5N.1; GLUCOSE,POINT OF CARE 124 MG/DL (70-110)
[2018-11-20] MEDS: HYDROmorphone 2 MG/ML SYRINGE IVP PRN ×3 (06:04→22:16)
[2018-11-20 06:35] LABS: GLUCOMETER DEV NAME(LOC) 5N.1; GLUCOSE,POINT OF CARE 219 MG/DL (70-110)
[2018-11-20 07:20] VITALS: BP 144/69
[2018-11-20 07:39] LABS: BASOPHILS % (AUTO) 1.5 % (0.0-2.0); EOSINOPHILS % (AUTO) 5.3 % (1.0-6.0); HEMATOCRIT 21.9 % (41-53); HEMOGLOBIN 7.2 g/dL (13.5-17.5); LYMPHOCYTES # (AUTO) 0.7 K/uL (1.0-4.8); LYMPHOCYTES % (AUTO) 14.3 % (22.0-44.0); MEAN CORPUSCULAR HEMOGLOBIN 30.1 pg (26.0-34.0); MEAN CORPUSCULAR HGB CONC 32.9 G/dL (31.0-37.0); MEAN CORPUSCULAR VOLUME 92 fL (80-100); MONOCYTES % (AUTO) 19.3 % (2.0-9.0); NEUTROPHILS # (AUTO) 3.1 K/uL (1.8-7.7); NEUTROPHILS % (AUTO) 59.6 % (40.0-70.0); PLATELET COUNT (AUTO) 332 K/uL (150-450); RED BLOOD CELL COUNT(AUTO) 2.39 MIL/uL (4.50-5.90); RED CELL DISTRIBUTION WIDTH 14.5 % (11.5-14.5)
[2018-11-20 07:59] LABS: CALCIUM, TOTAL 8.1 mg/dL (8.8-10.5); CREATININE 4.51 mg/dL (0.60-1.30)
[2018-11-20] MEDS: SEVELAMER CARBONATE 800 MG TABLET PO SCH ×3 (08:00→18:00)
[2018-11-20] MEDS: HEPARIN SODIUM,PORCINE 5,000 UNITS/ML VIAL SQ SCH ×3 (08:00→23:25)
[2018-11-20] MEDS: AmLODIPine BESYLATE 10 MG TABLET PO SCH ×2 (08:13→22:16)
[2018-11-20] MEDS: DOCUSATE SODIUM 100 MG CAPSULE PO SCH ×2 (08:13→20:13)
[2018-11-20] MEDS: PANTOPRAZOLE SODIUM 40 MG DR TABLET PO SCH (08:13)
[2018-11-20] MEDS: CALCITRIOL 0.25 MCG CAPSULE PO SCH (08:13)
[2018-11-20 12:20] VITALS: BP 156/81
[2018-11-20] MEDS: DEXTROSE 5%-0.45% SODIUM CHL 1,000 ML IV SCH (15:00)
[2018-11-20 20:16] VITALS: BP 173/86
[2018-11-20] MEDS: ATORVASTATIN CALCIUM 20 MG TABLET PO SCH (22:16)
[2018-11-20 23:31] VITALS: BP 170/81
[2018-11-21 05:25] VITALS: BP 181/90
[2018-11-21] MEDS: HYDROmorphone 2 MG/ML SYRINGE IVP PRN ×2 (06:16→14:14)
[2018-11-21] MEDS: HydrALAZINE HCL 10 MG TABLET PO PRN (06:26)
[2018-11-21 06:36] LABS: EOSINOPHILS % (AUTO) 4.4 % (1.0-6.0); HEMATOCRIT 22.1 % (41-53); HEMOGLOBIN 7.4 g/dL (13.5-17.5); LYMPHOCYTES # (AUTO) 0.9 K/uL (1.0-4.8); LYMPHOCYTES % (AUTO) 14.2 % (22.0-44.0); MEAN CORPUSCULAR HEMOGLOBIN 30.4 pg (26.0-34.0); MEAN CORPUSCULAR HGB CONC 33.6 G/dL (31.0-37.0); MEAN CORPUSCULAR VOLUME 90 fL (80-100); MONOCYTES # (AUTO) 1.1 K/uL (0.1-1.0); MONOCYTES % (AUTO) 17.5 % (2.0-9.0); NEUTROPHILS # (AUTO) 3.9 K/uL (1.8-7.7); NEUTROPHILS % (AUTO) 62.9 % (40.0-70.0); PLATELET COUNT (AUTO) 340 K/uL (150-450); RED BLOOD CELL COUNT(AUTO) 2.44 MIL/uL (4.50-5.90); RED CELL DISTRIBUTION WIDTH 14.4 % (11.5-14.5)
[2018-11-21 07:11] LABS: % IRON SATURATION 28.6 % (30-44)
[2018-11-21 07:37] LABS: CALCIUM, TOTAL 8.3 mg/dL (8.8-10.5); CREATININE 5.58 mg/dL (0.60-1.30); PHOSPHORUS 5.1 mg/dL (2.5-4.9); POTASSIUM 5.1 mmol/L (3.5-5.1)
[2018-11-21] MEDS: HEPARIN SODIUM,PORCINE 5,000 UNITS/ML VIAL SQ SCH ×2 (08:00→15:01)
[2018-11-21] MEDS: SEVELAMER CARBONATE 800 MG TABLET PO SCH ×3 (08:00→18:00)
[2018-11-21] MEDS: DOCUSATE SODIUM 100 MG CAPSULE PO SCH (08:01)
[2018-11-21 08:19] VITALS: BP 144/78
[2018-11-21] MEDS ORDERED: EPOETIN ALFA 10,000 UNITS/ML VIAL SQ SCH (09:00)
[2018-11-21] MEDS: CALCITRIOL 0.25 MCG CAPSULE PO SCH (09:08)
[2018-11-21] MEDS: PANTOPRAZOLE SODIUM 40 MG DR TABLET PO SCH (09:08)
[2018-11-21] MEDS: AmLODIPine BESYLATE 10 MG TABLET PO SCH (09:08)
[2018-11-21 12:07] LABS: GLUCOMETER DEV NAME(LOC) 5S.2A; GLUCOSE,POINT OF CARE 131 MG/DL (70-110)
[2018-11-21 12:15] VITALS: BP 161/77
[2018-11-21] MEDS: DEXTROSE 5%-0.45% SODIUM CHL 1,000 ML IV SCH (15:00)
[2018-11-21 16:11] VITALS: BP 141/65
[2018-11-21] MEDS ORDERED: HYDROmorphone 2 MG/ML SYRINGE IVP ONE (18:00)
[2018-11-21 19:28] VITALS: BP 144/86
== END 2018-11-21 21:10 | disposition home or self-care (01) | DRG 425 ==
LOC: EMS 08:26 → 5S 20:00
PROVIDERS: ADMIT Internal Medicine; ATTEND Internal Medicine
PROC: 5A1D70Z Performance of Urinary Filtration, Intermittent, Less than 6 Hours Per Day (ICD-10-PCS; principal; 2018-11-18)
PROC: 5A1D70Z Performance of Urinary Filtration, Intermittent, Less than 6 Hours Per Day (ICD-10-PCS; 2018-11-19)
PROC: 5A1D70Z Performance of Urinary Filtration, Intermittent, Less than 6 Hours Per Day (ICD-10-PCS; 2018-11-21)
DX: E87.5 Hyperkalemia (principal); I13.2 Hypertensive heart and chronic kidney disease with heart failure and with stage 5 chronic kidney disease, or end stage renal disease; E11.21 Type 2 diabetes mellitus with diabetic nephropathy; N18.6 End stage renal disease; R18.8 Other ascites; E11.51 Type 2 diabetes mellitus with diabetic peripheral angiopathy without gangrene; E11.319 Type 2 diabetes mellitus with unspecified diabetic retinopathy without macular edema; E11.649 Type 2 diabetes mellitus with hypoglycemia without coma; K31.84 Gastroparesis; E11.43 Type 2 diabetes mellitus with diabetic autonomic (poly)neuropathy; E11.22 Type 2 diabetes mellitus with diabetic chronic kidney disease; I50.31 Acute diastolic (congestive) heart failure; E78.5 Hyperlipidemia, unspecified; D63.1 Anemia in chronic kidney disease; H54.8 Legal blindness, as defined in USA; F32.9 Major depressive disorder, single episode, unspecified; F43.10 Post-traumatic stress disorder, unspecified; K74.60 Unspecified cirrhosis of liver; F12.90 Cannabis use, unspecified, uncomplicated; F17.200 Nicotine dependence, unspecified, uncomplicated; G89.4 Chronic pain syndrome; B19.20 Unspecified viral hepatitis C without hepatic coma; Z88.0 Allergy status to penicillin; Z89.512 Acquired absence of left leg below knee; Z91.19 Patient's noncompliance with other medical treatment and regimen; Z91.15 Patient's noncompliance with renal dialysis; Z99.2 Dependence on renal dialysis; Z88.5 Allergy status to narcotic agent; Z89.9 Acquired absence of limb, unspecified
CPT/HCPCS: 82728; 83540; 83550; 83605; 83735; 84100; 87040; 87081; 87340; 93005; 99291; G0480; J0131; J0610; J0885; J1170; J1644; J1815; J2060; J2405; J2765; J3490; J7030

== ENCOUNTER 2019-01-04 02:13 | Inpatient (IN) | payer OTHER ==
[~2019-01-04] VITALS: Ht 167.6 cm; Wt 77.5 kg
[2019-01-04 02:35] LABS: GLUCOSE,POINT OF CARE 260 MG/DL (70-110)
[2019-01-04 03:35] LABS: BASOPHILS % (AUTO) 0.8 % (0.0-2.0); EOSINOPHILS % (AUTO) 3.3 % (1.0-6.0); HEMATOCRIT 23.4 % (41-53); HEMOGLOBIN 7.7 g/dL (13.5-17.5); LYMPHOCYTES # (AUTO) 0.9 K/uL (1.0-4.8); LYMPHOCYTES % (AUTO) 8.7 % (22.0-44.0); MEAN CORPUSCULAR HEMOGLOBIN 28.7 pg (26.0-34.0); MEAN CORPUSCULAR HGB CONC 32.8 G/dL (31.0-37.0); MEAN CORPUSCULAR VOLUME 88 fL (80-100); MONOCYTES # (AUTO) 1.3 K/uL (0.1-1.0); MONOCYTES % (AUTO) 13.1 % (2.0-9.0); NEUTROPHILS # (AUTO) 7.3 K/uL (1.8-7.7); NEUTROPHILS % (AUTO) 74.1 % (40.0-70.0); PLATELET COUNT (AUTO) 408 K/uL (150-450); RED BLOOD CELL COUNT(AUTO) 2.67 MIL/uL (4.50-5.90); RED CELL DISTRIBUTION WIDTH 16.2 % (11.5-14.5)
[2019-01-04 03:44] LABS: CALCIUM, TOTAL 7.7 mg/dL (8.8-10.5); CREATININE 8.49 mg/dL (0.60-1.30); POTASSIUM 5.7 mmol/L (3.5-5.1)
[2019-01-04 03:50] LABS: INR 1.3 (0.9-1.1); PROTHROMBIN TIME 12.7 SEC (9.4-11.6)
[2019-01-04] MEDS ORDERED: HYDROmorphone 2 MG/ML SYRINGE IVP ONE (04:00)
[2019-01-04 04:15] LABS: BILIRUBIN,TOTAL 0.5 mg/dL (0.1-1.0)
[2019-01-04 04:27] LABS: ALBUMIN 2.7 g/dL (3.4-5.0); TOTAL PROTEIN, SERUM 7.8 g/dL (6.4-8.2)
[2019-01-04] MEDS ORDERED: CefTRIAXone 1 GM/DEXTROSE 50 ML IV ONE (04:45)
[2019-01-04] MEDS ORDERED: INSULIN REGULAR, HUMAN 100 UNITS/ML SQ ONE ×2 (04:45→05:15)
[2019-01-04] MEDS ORDERED: ONDANSETRON HCL 4 MG/2 ML VIAL IVP PRN ×2 (05:15→07:45)
[2019-01-04] MEDS ORDERED: ACETAMINOPHEN 325 MG TABLET PO PRN ×2 (05:15→07:45)
[2019-01-04] MEDS ORDERED: HydrALAZINE HCL 20 MG/ML VIAL IVP ONE (07:15)
[2019-01-04 07:19] VITALS: BP 166/96
[2019-01-04 07:44] VITALS: BP_SYST 159; BP_DIAS 8; BP_DIAS 84
[2019-01-04] MEDS ORDERED: 0.9% SODIUM CHLORIDE 10 ML SYRINGE IVP PRN (07:45)
[2019-01-04] MEDS ORDERED: ZOLPIDEM TARTRATE 5 MG TABLET PO PRN (07:45)
[2019-01-04] MEDS ORDERED: HEPARIN SODIUM,PORCINE 5,000 UNITS/ML VIAL SQ SCH ×2 (08:00→21:00)
[2019-01-04] MEDS ORDERED: SEVELAMER CARBONATE 800 MG TABLET PO SCH (08:00)
[2019-01-04] MEDS ORDERED: PANTOPRAZOLE SODIUM 40 MG DR TABLET PO SCH (09:00)
[2019-01-04] MEDS ORDERED: DOCUSATE SODIUM 100 MG CAPSULE PO SCH (09:00)
[2019-01-04] MEDS ORDERED: CALCITRIOL 0.25 MCG CAPSULE PO SCH (09:00)
[2019-01-04] MEDS ORDERED: AmLODIPine BESYLATE 10 MG TABLET PO SCH ×2 (09:00→10:03)
[2019-01-04] MEDS ORDERED: AZITHROMYCIN 500 MG/NS 250 ML IV SCH (09:00)
[2019-01-04] MEDS ORDERED: HydrALAZINE HCL 20 MG/ML VIAL IVP PRN (10:00)
[2019-01-04] MEDS ORDERED: INSULIN LISPRO 100 UNITS/ML SQ PRN (10:15)
[2019-01-04] MEDS ORDERED: DEXTROSE 50%-WATER 25 GM/50 ML SYRINGE IVP PRN (10:15)
[2019-01-04] MEDS ORDERED: TraMADol HCL 50 MG TABLET PO PRN (10:15)
[2019-01-04 11:36] VITALS: BP 164/98
[2019-01-04] MEDS ORDERED: ATORVASTATIN CALCIUM 20 MG TABLET PO SCH (21:00)
[2019-01-05] MEDS ORDERED: CefTRIAXone 1 GM/DEXTROSE 50 ML IV SCH (06:00)
== END 2019-01-04 12:30 | disposition left against medical advice (07) | DRG 139 ==
LOC: EMS 02:15 → 5S 05:00
PROVIDERS: ADMIT Internal Medicine; ATTEND Internal Medicine
DX: J18.9 Pneumonia, unspecified organism (principal); I13.2 Hypertensive heart and chronic kidney disease with heart failure and with stage 5 chronic kidney disease, or end stage renal disease; E11.22 Type 2 diabetes mellitus with diabetic chronic kidney disease; N18.6 End stage renal disease; E11.319 Type 2 diabetes mellitus with unspecified diabetic retinopathy without macular edema; E11.65 Type 2 diabetes mellitus with hyperglycemia; I50.9 Heart failure, unspecified; E87.5 Hyperkalemia; H54.8 Legal blindness, as defined in USA; B19.20 Unspecified viral hepatitis C without hepatic coma; Z53.29 Procedure and treatment not carried out because of patient's decision for other reasons; F32.9 Major depressive disorder, single episode, unspecified; F12.90 Cannabis use, unspecified, uncomplicated; F17.210 Nicotine dependence, cigarettes, uncomplicated; F43.10 Post-traumatic stress disorder, unspecified; G89.29 Other chronic pain; K74.60 Unspecified cirrhosis of liver; Z59.0 Homelessness; Z83.3 Family history of diabetes mellitus; Z89.512 Acquired absence of left leg below knee; Z91.14 Patient's other noncompliance with medication regimen; Z99.2 Dependence on renal dialysis; Z88.5 Allergy status to narcotic agent; Z88.0 Allergy status to penicillin; Z88.8 Allergy status to other drugs, medicaments and biological substances; Z79.899 Other long term (current) drug therapy
CPT/HCPCS: 87040; 93005; 96365; 96372; 96375; J0360; J0456; J0696; J1170; J1644; J1815